=== PATIENT | female | born 1975 | race Caucasian/White ===

== ENCOUNTER 2016-12-05 00:09 | Emergency (ER) | payer OTHER, BC ==
[2016-12-05] MEDS ORDERED: Ketorolac 30 MG/ML SDV IVPUSH ONE (00:30)
[2016-12-05] MEDS ORDERED: diphenhydrAMINE 50 MG/ML SDV IVPUSH ONE (00:30)
[2016-12-05] MEDS ORDERED: Metoclopramide 10 MG/2 ML SDV IV ONE (00:30)
[2016-12-05] MEDS ORDERED: Ondansetron 4 MG/2 ML SDV IVPUSH ONE (00:30)
[2016-12-05] MEDS ORDERED: Sodium Chloride 0.9% 1,000 ML IV ONE (00:30)
--- NOTE | 2016-12-05 00:33 | EDM.PDOC ---
ED HPI GENERAL MEDICAL PROBLEM - General Chief Complaint: Headache Stated Complaint: MIGRAINE Time Seen by Provider: 12/05/16 00:26 - History of Present Illness INITIAL COMMENTS - FREE TEXT/NARRATIVE: HISTORY AND PHYSICAL: History of present illness: Patient is a 41-year-old white female history of migraine headache presents with the chief complaint of migraine headache she states this was aggravated by working on a computer all day. She's had similar episodes in the past times many she is followed by private medical doctor for this problem Review of systems: As per history of present illness and below otherwise all systems reviewed and negative. Past medical history: As per history of present illness and as reviewed below otherwise noncontributory. Surgical history: As per history of present illness and as reviewed below otherwise noncontributory. Social history: No reported history of drug or alcohol abuse. Family history: As per history of present illness and as reviewed below otherwise noncontributory. Physical exam: HEENT: Atraumatic, normocephalic, pupils reactive, negative for conjunctival pallor or scleral icterus, mucous membranes moist, throat clear, neck supple, nontender, trachea midline. Lungs: Clear to auscultation, breath sounds equal bilaterally, chest nontender. Heart: S1S2, regular, negative for clicks, rubs, or JVD. Abdomen: Soft, nondistended, nontender. Negative for masses or hepatosplenomegaly. Negative for costovertebral tenderness. Pelvis: Stable nontender. Genitourinary: Deferred. Rectal: Deferred. Extremities: Atraumatic, negative for cords or calf pain. Neurovascular unremarkable. Neuro: Awake, alert, oriented. Cranial nerves II through XII unremarkable. Cerebellum unremarkable. Motor and sensory unremarkable throughout. Exam nonfocal. Diagnostics: None Therapeutics: Normal saline 1 L bolus Toradol 30 mg IV Reglan 10 mg IV Zofran 4 mg IV Benadryl 50 mg IV Impression: #1 migraine headache Definitive disposition and diagnosis as appropriate pending reevaluation and review of above. headache Pain Score (Numeric/FACES): 8 - Related Data Allergies Allergy/AdvReac Type Severity Reaction Status Date / Time No Known Allergies Allergy Verified 12/05/16 00:12 Home Meds: Home Meds Chloroquine Phosphate 5 gm MC BID 12/05/16 [History] Escitalopram Oxalate [Lexapro] 30 mg PO DAILY 12/05/16 [History] Gabapentin [Gralise] 1,800 mg PO DAILY 12/05/16 [History] traZODone HCl [Trazodone HCl] 100 mg PO 12/05/16 [History] Past Medical History HEENT History: Reports: Sinusitis Cardiovascular History: Reports: None Respiratory History: Reports: None Gastrointestinal History: Reports: Cholelithiasis Genitourinary History: Reports: None 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) Other OB/BYN History: infertility Musculoskeletal History: Reports: Fibromyalgia, Other (see below) Other Musculoskeletal History: myofacial syndrome, Neurological History: Reports: Migraines, Other (see below) Other Neuro History: chronic fatigue Psychiatric History: Reports: Anxiety Endocrine/Metabolic History: Reports: None Immunologic History: Reports: Other (see below) Other Immunologic History: 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 Oncologic (Cancer) History: Reports: None Dermatologic History: Reports: None - Infectious Disease History Infectious Disease History: Reports: Chicken pox - Past Surgical History GI Surgical History: Reports: Cholecystectomy, Other (see below) Other GI Surgeries/Procedures: colon resection Neurological Surgical History: Reports: Other (see below) Other Neurological Surgeries/Procedures: left ulnar nerve entrapment Social & Family History - Family History Family Medical History: Noncontributory - Tobacco Use Smoking Status *Q: Current Every Day Smoker Years of Tobacco use: 29 Packs/Tins Daily: 1 Used Tobacco, but Quit: Yes Second Hand Smoke Exposure: Yes - Alcohol Use Days Per Week of Alcohol Use: 0 Number of Drinks Per Day: 3 Total Drinks Per Week: 0 - Recreational Drug Use Recreational Drug Use: No Drug Use in Last 12 Months: No ED ROS GENERAL - Review of Systems Review Of Systems: ROS reveals no pertinent complaints other than HPI. ED EXAM, GENERAL - Physical Exam Exam: See Below (See dictation) Course - Vital Signs Last Recorded V/S: Last Vital Signs Temp 36.5 C 12/05/16 00:17 Pulse 101 H 12/05/16 00:17 Resp 18 12/05/16 00:17 BP 154/95 H 12/05/16 00:17 Pulse Ox 95 12/05/16 00:17 - Orders/Labs/Meds Orders: Active Orders 24 hr Category Date Time Status Ketorolac [Toradol] Med 12/05/16 00:30 Once 30 mg IVPUSH ONETIME ONE Metoclopramide [Reglan] Med 12/05/16 00:30 Once 10 mg IV ONETIME ONE Ondansetron [Zofran] Med 12/05/16 00:30 Once 4 mg IVPUSH ONETIME ONE Sodium Chloride 0.9% [Normal Saline] 1,000 ml Med 12/05/16 00:30 Ordered IV STAT diphenhydrAMINE [Benadryl] Med 12/05/16 00:30 Once 50 mg IVPUSH ONETIME ONE Departure - Departure Time of Disposition: 00:32 Disposition: Home, Self-Care 01 Condition: good Clinical Impression: Migraine headache Forms: ED Department Discharge Additional Instructions: The following information is given to patients seen in the emergency department who are being discharged to home. This information is to outline your options for follow-up care. We provide all patients seen in our emergency department with a follow-up referral. The need for follow-up, as well as the timing and circumstances, are variable depending upon the specifics of your emergency department visit. If you don't have a primary care physician on staff, we will provide you with a referral. We always advise you to contact your personal physician following an emergency department visit to inform them of the circumstance of the visit and for follow-up with them and/or the need for any referrals to a consulting specialist. The emergency department will also refer you to a specialist when appropriate. This referral assures that you have the opportunity for followup care with a specialist. All of these measure are taken in an effort to provide you with optimal care, which includes your followup. Under all circumstances we always encourage you to contact your private physician who remains a resource for coordinating your care. When calling for followup care, please make the office aware that this follow-up is from your recent emergency room visit. If for any reason you are refused follow-up, please contact the [facility] emergency department at and asked to speak to the emergency department charge nurse. Continue current medications follow up primary medical doctor one to 2 days return as needed as discussed - My Orders Last 24 Hours: My Active Orders 12/05/16 00:30 Ketorolac [Toradol] 30 mg IVPUSH ONETIME ONE Metoclopramide [Reglan] 10 mg IV ONETIME ONE Ondansetron [Zofran] 4 mg IVPUSH ONETIME ONE Sodium Chloride 0.9% [Normal Saline] 1,000 ml IV STAT diphenhydrAMINE [Benadryl] 50 mg IVPUSH ONETIME ONE - Assessment/Plan Last 24 Hours: My Active Orders 12/05/ 00:30 Ketorolac [Toradol] 30 mg IVPUSH ONETIME ONE Metoclopramide [Reglan] 10 mg IV ONETIME ONE Ondansetron [Zofran] 4 mg IVPUSH ONETIME ONE Sodium Chloride 0.9% [Normal Saline] 1,000 ml IV STAT diphenhydrAMINE [Benadryl] 50 mg IVPUSH ONETIME ONE
[2016-12-05 02:04] VITALS: BP 114/77
== END 2016-12-05 01:57 | disposition home or self-care (01) ==
LOC: MW.ED 00:09
DX: G43.909 Migraine, unspecified, not intractable, without status migrainosus (principal); F41.9 Anxiety disorder, unspecified; Z90.49 Acquired absence of other specified parts of digestive tract; Z98.890 Other specified postprocedural states; F17.210 Nicotine dependence, cigarettes, uncomplicated; Z79.899 Other long term (current) drug therapy
CPT/HCPCS: 96374; 96375; 99283; J1200; J1885; J2405; J2765; J7040; 99284

== ENCOUNTER 2017-05-08 22:22 | Emergency (ER) | payer OTHER, BC ==
[2017-05-08] MEDS ORDERED: Ondansetron 4 MG/2 ML SDV IVPUSH ONE (22:42)
[2017-05-08] MEDS ORDERED: Sodium Chloride 0.9% 1,000 ML IV ONE (22:42)
[2017-05-08] MEDS ORDERED: Ketorolac 30 MG/ML SDV IVPUSH ONE (22:42)
--- NOTE | 2017-05-08 23:19 | EDM.PDOC ---
ED HPI GENERAL MEDICAL PROBLEM - General Chief Complaint: Headache Stated Complaint: MIGRAINE Time Seen by Provider: 05/08/17 23:18 Source of Information: Reports: Patient - History of Present Illness INITIAL COMMENTS - FREE TEXT/NARRATIVE: HISTORY AND PHYSICAL: History of present illness: []Patient presents with usual migraine symptoms she rates 8 out of 10 on arrival right unilateral with photophobia nausea and one episode of vomiting per patient is a consistent with her usual migraine symptoms she generally takes amitriptyline which will take care of these symptoms however tonight she is not gaining any relief. No fever chills sweats no chest pain shortness breath dizziness or palpitation no bowel or urine symptoms Review of systems: As per history of present illness and below otherwise all systems reviewed and negative. Past medical history: As per history of present illness and as reviewed below otherwise noncontributory. Surgical history: As per history of present illness and as reviewed below otherwise noncontributory. Social history: No reported history of drug or alcohol abuse. Family history: As per history of present illness and as reviewed below otherwise noncontributory. Physical exam: HEENT: Atraumatic, normocephalic, pupils reactive, negative for conjunctival pallor or scleral icterus, mucous membranes moist, throat clear, neck supple, nontender, trachea midline. Lungs: Clear to auscultation, breath sounds equal bilaterally, chest nontender. Heart: S1S2, regular, negative for clicks, rubs, or JVD. Abdomen: Soft, nondistended, nontender. Negative for masses or hepatosplenomegaly. Negative for costovertebral tenderness. Pelvis: Stable nontender. Genitourinary: Deferred. Rectal: Deferred. Extremities: Atraumatic, negative for cords or calf pain. Neurovascular unremarkable. Neuro: Awake, alert, oriented. Cranial nerves II through XII unremarkable. Cerebellum unremarkable. Motor and sensory unremarkable throughout. Exam nonfocal. Diagnostics: []None Therapeutics: []Toradol 30 milligrams IV Zofran 8 mg IV Normal saline bolus 1 L Ativan 1 mg IV Benadryl 25 mg IV Follow-up with primary care in 2 weeks sooner as needed Impression: []Migraine Definitive disposition and diagnosis as appropriate pending reevaluation and review of above. head Pain Score (Numeric/FACES): 10 - Related Data Allergies Allergy/AdvReac Type Severity Reaction Status Date / Time No Known Allergies Allergy Verified 05/08/17 22:53 Home Meds: Home Meds Chloroquine Phosphate 5 gm MC BID 12/05/16 [History] Escitalopram Oxalate [Lexapro] 30 mg PO DAILY 12/05/16 [History] Gabapentin [Gralise] 1,800 mg PO DAILY 12/05/16 [History] Nortriptyline 50 mg PO BEDTIME 12/05/16 [History] traZODone HCl [Trazodone HCl] 100 mg PO ASDIRECTED 12/05/16 [History] Past Medical History HEENT History: Reports: Sinusitis Cardiovascular History: Reports: None Respiratory History: Reports: None Gastrointestinal History: Reports: Cholelithiasis Genitourinary History: Reports: None [employer]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 (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) Other OB/BYN History: infertility Musculoskeletal History: Reports: Fibromyalgia, Other (See Below) Other Musculoskeletal History: myofacial syndrome, Neurological History: Reports: Migraines, Other (See Below) Other Neuro History: chronic fatigue Psychiatric History: Reports: Anxiety Endocrine/Metabolic History: Reports: None Immunologic History: Reports: Other (See Below) Other Immunologic History: 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 Oncologic (Cancer) History: Reports: None Dermatologic History: Reports: None - Infectious Disease History Infectious Disease History: Reports: Chicken Pox - Past Surgical History GI Surgical History: Reports: Cholecystectomy, Other (See Below) Neurological Surgical History: Reports: Other (See Below) Social & Family History - Family History Family Medical History: Noncontributory - Tobacco Use Smoking Status *Q: Current Every Day Smoker Years of Tobacco use: 20 Packs/Tins Daily: 1 Used Tobacco, but Quit: Yes Second Hand Smoke Exposure: Yes - Alcohol Use Days Per Week of Alcohol Use: 0 Number of Drinks Per Day: 3 Total Drinks Per Week: 0 - Recreational Drug Use Recreational Drug Use: No Drug Use in Last 12 Months: No ED ROS GENERAL - Review of Systems Review Of Systems: ROS reveals no pertinent complaints other than HPI. ED EXAM, GENERAL - Physical Exam Exam: See Below Course - Vital Signs Last Recorded V/S: Last Vital Signs Temp 36.3 C 05/08/17 22:55 Pulse 88 05/08/17 22:55 Resp 18 05/08/17 22:55 BP 182/101 H 05/08/17 22:55 Pulse Ox 97 05/08/17 22:55 - Orders/Labs/Meds Orders: Active Orders 24 hr Category Date Time Status LORazepam [Ativan] Med 05/09/17 00:24 Once 1 mg IVPUSH ONETIME ONE diphenhydrAMINE [Benadryl] Med 05/09/17 00:24 Once 25 mg IVPUSH ONETIME ONE Meds: Medications Discontinued Medications Generic Name Dose Route Start Last Admin Trade Name Aileen PRN Reason Stop Dose Admin Sodium Chloride 1,000 mls @ 999 mls/hr 05/08/17 22:42 05/08/17 23:13 Normal Saline IV 05/08/17 23:42 999 mls/hr STAT ONE Administration Ketorolac Tromethamine 30 mg 05/08/17 22:42 05/08/17 23:14 Toradol IVPUSH 05/08/17 22:43 30 mg ONETIME ONE Administration Ondansetron HCl 8 mg 05/08/17 22:42 05/08/17 23:15 Zofran IVPUSH 05/08/17 22:43 8 mg ONETIME ONE Administration Departure - Departure Time of Disposition: 00:25 Disposition: Home, Self-Care 01 Condition: Good Clinical Impression: Migraine - Discharge Information Referrals: Atilio Ahumada MD [Primary Care Provider] - Forms: ED Department Discharge Additional Instructions: Continue home medications as directed Return if symptoms persist or worsen Follow-up with primary care in 2 weeks The following information is given to patients seen in the emergency department who are being discharged to home. This information is to outline your options for follow-up care. We provide all patients seen in our emergency department with a follow-up referral. The need for follow-up, as well as the timing and circumstances, are variable depending upon the specifics of your emergency department visit. If you don't have a primary care physician on staff, we will provide you with a referral. We always advise you to contact your personal physician following an emergency department visit to inform them of the circumstance of the visit and for follow-up with them and/or the need for any referrals to a consulting specialist. The emergency department will also refer you to a specialist when appropriate. This referral assures that you have the opportunity for follow-up care with a specialist. All of these measure are taken in an effort to provide you with optimal care, which includes your follow-up. Under all circumstances we always encourage you to contact your private physician who remains a resource for coordinating your care. When calling for follow-up care, please make the office aware that this follow-up is from your recent emergency room visit. If for any reason you are refused follow-up, please contact the [facility] emergency department at and asked to speak to the emergency department charge nurse. - My Orders Last 24 Hours: My Active Orders 05/09/17 00:24 LORazepam [Ativan] 1 mg IVPUSH ONETIME ONE diphenhydrAMINE [Benadryl] 25 mg IVPUSH ONETIME ONE - Assessment/Plan Last 24 Hours: My Active Orders 05/09/17 00:24 LORazepam [Ativan] 1 mg IVPUSH ONETIME ONE diphenhydrAMINE [Benadryl] 25 mg IVPUSH ONETIME ONE
[2017-05-09] MEDS ORDERED: LORazepam 2 MG/ML MDV IVPUSH ONE (00:24)
[2017-05-09] MEDS ORDERED: diphenhydrAMINE 50 MG/ML SDV IVPUSH ONE (00:24)
[2017-05-09 04:16] VITALS: BP 134/77
== END 2017-05-09 00:57 | disposition home or self-care (01) ==
LOC: MW.ED 22:22
DX: G43.909 Migraine, unspecified, not intractable, without status migrainosus (principal); F17.210 Nicotine dependence, cigarettes, uncomplicated; Z79.899 Other long term (current) drug therapy; Z90.49 Acquired absence of other specified parts of digestive tract; Z88.8 Allergy status to other drugs, medicaments and biological substances; Z88.1 Allergy status to other antibiotic agents
CPT/HCPCS: 96361; 96374; 96375; 99283; J1200; J1885; J2060; J2405; J7040

== ENCOUNTER 2017-10-01 22:19 | Emergency (ER) | payer BC ==
[2017-10-01] MEDS ORDERED: Sodium Chloride 0.9% 1,000 ML IV ONE (22:54)
[2017-10-01] MEDS ORDERED: Ondansetron 4 MG/2 ML SDV IVPUSH ONE (22:54)
[2017-10-01] MEDS ORDERED: Ketorolac 30 MG/ML SDV IVPUSH ONE (22:54)
[2017-10-01] MEDS ORDERED: SUMAtriptan 6 MG/0.5 ML SDV SUBCUT ONE (22:55)
--- NOTE | 2017-10-01 22:56 | EDM.PDOC ---
ED HPI GENERAL MEDICAL PROBLEM - General Chief Complaint: Headache Stated Complaint: JAW PAIN Time Seen by Provider: 10/01/17 22:55 Source of Information: Reports: Patient - History of Present Illness INITIAL COMMENTS - FREE TEXT/NARRATIVE: HISTORY AND PHYSICAL: History of present illness: [Patient presents with migraine she has history of migraine right unilateral pain with or yesterday, headache continues 8 out of 10 on arrival O fever nausea vomiting chills sweats no chest pain shortness of breath dizziness or palpitation no bowel or urine symptoms no visual change or scotoma current ] Review of systems: As per history of present illness and below otherwise all systems reviewed and negative. Past medical history: As per history of present illness and as reviewed below otherwise noncontributory. Surgical history: As per history of present illness and as reviewed below otherwise noncontributory. Social history: No reported history of drug or alcohol abuse. Family history: As per history of present illness and as reviewed below otherwise noncontributory. Physical exam: HEENT: Atraumatic, normocephalic, pupils reactive, negative for conjunctival pallor or scleral icterus, mucous membranes moist, throat clear, neck supple, nontender, trachea midline. Lungs: Clear to auscultation, breath sounds equal bilaterally, chest nontender. Heart: S1S2, regular, negative for clicks, rubs, or JVD. Abdomen: Soft, nondistended, nontender. Negative for masses or hepatosplenomegaly. Negative for costovertebral tenderness. Pelvis: Stable nontender. Genitourinary: Deferred. Rectal: Deferred. Extremities: Atraumatic, negative for cords or calf pain. Neurovascular unremarkable. Neuro: Awake, alert, oriented. Cranial nerves II through XII unremarkable. Cerebellum unremarkable. Motor and sensory unremarkable throughout. Exam nonfocal. Diagnostics: [Clinical ] Therapeutics: [1 L normal saline bolus 8 mg Zofran IV Toradol 30 mg IV Imitrex 6 mg subcutaneous] Impression: [Migraine-improved/resolved with above Chronic history of baseline] Definitive disposition and diagnosis as appropriate pending reevaluation and review of above. 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 ED EXAM, GENERAL - Physical Exam Exam: See Below Course - Vital Signs Last Recorded V/S: Last Vital Signs Temp 97.6 F 10/01/17 22:35 Pulse 97 10/01/17 22:35 Resp 18 10/01/17 22:35 BP 131/85 10/01/17 22:35 Pulse Ox 95 10/01/17 22:35 - Orders/Labs/Meds Meds: Medications Discontinued Medications Generic Name Dose Route Start Last Admin Trade Name Freq PRN Reason Stop Dose Admin Sodium Chloride 1,000 mls @ 999 mls/hr 10/01/17 22:54 10/01/17 23:32 Normal Saline IV 10/01/17 23:54 999 mls/hr STAT ONE Administration Ketorolac Tromethamine 30 mg 10/01/17 22:54 10/01/17 23:39 Toradol IVPUSH 10/01/17 22:55 30 mg ONETIME ONE Administration Ondansetron HCl 8 mg 10/01/17 22:54 10/01/17 23:36 Zofran IVPUSH 10/01/17 22:55 8 mg ONETIME ONE Administration Sumatriptan Succinate 6 mg 10/01/17 22:55 10/01/17 23:41 Imitrex SUBCUT 10/01/17 22:56 6 mg ONETIME ONE Administration Departure - Departure Time of Disposition: 00:01 Disposition: Home, Self-Care 01 Condition: Good Clinical Impression: Migraine - Discharge Information Referrals: Atilio Ahumada MD [Primary Care Provider] - Forms: ED Department Discharge Additional Instructions: The following information is given to patients seen in the emergency department who are being discharged to home. This information is to outline your options for follow-up care. We provide all patients seen in our emergency department with a follow-up referral. The need for follow-up, as well as the timing and circumstances, are variable depending upon the specifics of your emergency department visit. If you don't have a primary care physician on staff, we will provide you with a referral. We always advise you to contact your personal physician following an emergency department visit to inform them of the circumstance of the visit and for follow-up with them and/or the need for any referrals to a consulting specialist. The emergency department will also refer you to a specialist when appropriate. This referral assures that you have the opportunity for follow-up care with a specialist. All of these measure are taken in an effort to provide you with optimal care, which includes your follow-up. Under all circumstances we always encourage you to contact your private physician who remains a resource for coordinating your care. When calling for follow-up care, please make the office aware that this follow-up is from your recent emergency room visit. If for any reason you are refused follow-up, please contact the [facility] emergency department at and asked to speak to the emergency department charge nurse.
[2017-10-02 00:37] VITALS: BP 114/73
== END 2017-10-02 00:37 | disposition home or self-care (01) ==
LOC: MERGE 22:19 → MW.ED 22:19
DX: G43.909 Migraine, unspecified, not intractable, without status migrainosus (principal); F17.210 Nicotine dependence, cigarettes, uncomplicated; Z79.899 Other long term (current) drug therapy
CPT/HCPCS: 96361; 96372; 96374; 96375; 99283; J1885; J2405; J3030; J7040

== ENCOUNTER 2017-12-11 15:20 | Emergency (ER) | payer BC ==
--- NOTE | 2017-12-11 16:11 | EDM.PDOC ---
ED HPI GENERAL MEDICAL PROBLEM - General Chief Complaint: Back Pain or Injury Stated Complaint: UPPER ABD/BACK PAIN Time Seen by Provider: 12/11/17 15:26 Source of Information: Reports: Patient History Limitations: Reports: No Limitations - History of Present Illness INITIAL COMMENTS - FREE TEXT/NARRATIVE: History of present illness: []Patient has had mid back pain for 3 days. She had to change a tire pain began after that although she did not feel any sudden pain while she was doing this. She denies any shortness of breath, recent illnesses, new trauma, fevers, chills or cough. Patient went to [facility]. My not had x-rays and a workup that was negative, she saw her doctor yesterday Dr. Ahumada but was only seen for her chronic knee pain. Review of systems: As per history of present illness and below otherwise all systems reviewed and negative. Past medical history: As per history of present illness and as reviewed below otherwise noncontributory. Surgical history: As per history of present illness and as reviewed below otherwise noncontributory. Social history: No reported history of drug or alcohol abuse. Family history: As per history of present illness and as reviewed below otherwise noncontributory. Physical exam: General: Well developed, well nourished in NAD HEENT: Atraumatic, normocephalic, pupils reactive, negative for conjunctival pallor or scleral icterus, mucous membranes moist, throat clear, neck supple, nontender, trachea midline. Lungs: Clear to auscultation, breath sounds equal bilaterally, chest nontender. Heart: S1S2, regular, negative for clicks, rubs, or JVD. Abdomen: Soft, nondistended, nontender. Negative for masses or hepatosplenomegaly. Negative for costovertebral tenderness. Pelvis: Stable nontender. Genitourinary: Deferred. Rectal: Deferred. Extremities: Atraumatic, negative for cords or calf pain. Neurovascular unremarkable. Neuro: Awake, alert, oriented. Cranial nerves II through XII unremarkable. Cerebellum unremarkable. Motor and sensory unremarkable throughout. Exam nonfocal. Diagnostics: [] Therapeutics: []Toradol IM given with improvement Impression: []Thoracic myofascial strain Plan: []Ibuprofen heat ice follow-up with primary care consider physical therapy. Definitive disposition and diagnosis as appropriate pending reevaluation and review of above. 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 Cardiovascular History: Reports: None Respiratory History: Reports: None Gastrointestinal History: Reports: Cholelithiasis Genitourinary History: Reports: None 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 (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) Other OB/BYN History: infertility Musculoskeletal History: Reports: Fibromyalgia, Other (See Below) Other Musculoskeletal History: myofacial syndrome, Neurological History: Reports: Migraines, Other (See Below) Other Neuro History: Headaches Psychiatric History: Reports: Anxiety Endocrine/Metabolic History: Reports: None Immunologic History: Reports: Other (See Below) Other Immunologic History: 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 Oncologic (Cancer) History: Reports: None Dermatologic History: Reports: None - Infectious Disease History Infectious Disease History: Reports: Chicken Pox - Past Surgical History GI Surgical History: Reports: Cholecystectomy, Other (See Below) Social & Family History - Family History Family Medical History: Noncontributory - Tobacco Use Smoking Status *Q: Current Every Day Smoker Years of Tobacco use: 15 Packs/Tins Daily: 1 Used Tobacco, but Quit: Yes Second Hand Smoke Exposure: Yes - Caffeine Use Caffeine Use: Reports: Soda - Alcohol Use Days Per Week of Alcohol Use: 0 Number of Drinks Per Day: 3 Total Drinks Per Week: 0 - Recreational Drug Use Recreational Drug Use: No Drug Use in Last 12 Months: No ED ROS GENERAL - Review of Systems Review Of Systems: See Below (See history of present illness) ED EXAM, GI/ABD - Physical Exam Exam: See Below (See history of present illness) Course - Vital Signs Last Recorded V/S: Last Vital Signs Temp 98 F 12/11/17 15:51 Pulse 90 12/11/17 15:51 Resp 18 12/11/17 15:51 BP 132/83 12/11/17 15:51 Pulse Ox 96 12/11/17 15:51 - Orders/Labs/Meds Meds: Medications Discontinued Medications Generic Name Dose Route Start Last Admin Trade Name Aileen PRN Reason Stop Dose Admin Ketorolac Tromethamine 60 mg 12/11/17 16:28 12/11/17 16:41 Toradol IM 12/11/17 16:29 60 mg ONETIME ONE Administration Departure - Departure Time of Disposition: 17:26 Disposition: Home, Self-Care 01 Condition: Good Clinical Impression: Mid back pain - Discharge Information Referrals: Atilio Ahumada MD [Primary Care Provider] - Forms: ED Department Discharge Additional Instructions: The following information is given to patients seen in the emergency department who are being discharged to home. This information is to outline your options for follow-up care. We provide all patients seen in our emergency department with a follow-up referral. The need for follow-up, as well as the timing and circumstances, are variable depending upon the specifics of your emergency department visit. If you don't have a primary care physician on staff, we will provide you with a referral. We always advise you to contact your personal physician following an emergency department visit to inform them of the circumstance of the visit and for follow-up with them and/or the need for any referrals to a consulting specialist. The emergency department will also refer you to a specialist when appropriate. This referral assures that you have the opportunity for follow-up care with a specialist. All of these measure are taken in an effort to provide you with optimal care, which includes your follow-up. Under all circumstances we always encourage you to contact your private physician who remains a resource for coordinating your care. When calling for follow-up care, please make the office aware that this follow-up is from your recent emergency room visit. If for any reason you are refused follow-up, please contact the [facility] Emergency Department at and asked to speak to the emergency department charge nurse. Motrin ice and heat for pain follow-up primary care consider physical therapy return if symptoms worsen or change. [facility] [address] [place] [id number]
[2017-12-11] MEDS ORDERED: Ketorolac 60 MG/2 ML SDV IM ONE (16:28)
[2017-12-11 17:55] VITALS: BP 130/85
== END 2017-12-11 17:44 | disposition home or self-care (01) ==
LOC: MW.ED 15:20
DX: S29.012A Strain of muscle and tendon of back wall of thorax, initial encounter (principal); F17.210 Nicotine dependence, cigarettes, uncomplicated; Z79.899 Other long term (current) drug therapy; X58.XXXA Exposure to other specified factors, initial encounter
CPT/HCPCS: 96372; 99283; J1885

== ENCOUNTER 2018-01-24 19:09 | Emergency (ER) | payer BC ==
[2018-01-24] MEDS ORDERED: Ketorolac 60 MG/2 ML SDV IM ONE (19:59)
--- NOTE | 2018-01-24 20:01 | EDM.PDOC ---
ED HPI GENERAL MEDICAL PROBLEM - General Chief Complaint: Back Pain or Injury Stated Complaint: PT HAS BACK PAINS Time Seen by Provider: 01/24/18 19:59 Source of Information: Reports: Patient, Old Records History Limitations: Reports: No Limitations - History of Present Illness INITIAL COMMENTS - FREE TEXT/NARRATIVE: HISTORY AND PHYSICAL: []42-year-old female presenting with left flank and left leg pain History of Present Illness: []Last night patient started having pain to the lower back flank area and now radiating down Botox and outer thigh Denies having any difficulty with having bowel movements or passing water History taken her medications for her chronic pain and to help Review of Systems: As per history of present illness and below otherwise all systems reviewed and negative. Past medical history: As per history of present illness and as reviewed below otherwise noncontributory. Surgical history: As per history of present illness and as reviewed below otherwise noncontributory. Social history: No reported history of drug or alcohol abuse. Family history: As per history of present illness and as reviewed below otherwise noncontributory. Physical exam: Alert female answering questions appropriately in full sentences without any shortness of breath HEENT: Atraumatic, normocehpalic, pupils reactive, negative for conjunctival pallor or scleral icterus, mucous membranes moist, throat clear, neck supple, nontender, trachea midline. Lungs: Clear to auscultation, breath sounds equal bilaterally, chest non tender. Heart: S1S2, regular, negative for clicks, rubs, or JVD. Abdomen: Soft, nondistended, nontender. Negative for masses or hepatossplenmegaly. Negative for costovertebral tenderness. Mild tenderness noted with palpation to the left sciatic area with palpation causes pain down her buttocks and into the thigh. Pelvis: Stable nontender. Genitourinary: Deferred. Rectal: Deferred Extremities: Atraumatic, negative for cords or calf pain. Neurovascular unremarkable. Neuro: Awake, alert, oriented. Cranial nerves II through XII unremarkable. Cerebellum unremarkable. Motor and sensory unremarkable throughout. Exam nonfocal. Diagnostics: [] Therapeutics: []Toradol 60 IM Impression: []Left sciatic pain Plan: []Discharge home Take a Valium when you get home Definitive disposition and diagnosis as appropriate pending reevaluation and review of above. Onset: Sudden Duration: Day(s): (1) LEFT FLANK Pain Score (Numeric/FACES): 8 - Related Data Allergies Allergy/AdvReac Type Severity Reaction Status Date / Time No Known Allergies Allergy Verified 01/24/18 19:15 Home Meds: Home Meds Escitalopram [Lexapro] 20 mg PO DAILY 10/01/17 [History] Gabapentin [Neurontin] 600 mg PO TID 10/01/17 [History] Hydrocodone/Acetaminophen [Hydrocodon-Acetaminophn 10-325] 1 tab PO Q4H PRN [History] traZODone 100 mg PO BEDTIME PRN 10/01/17 [History] Diazepam [Valium] 1 tab PO DAILY 01/24/18 [History] Past Medical History HEENT History: Reports: Other (See Below), Sinusitis Other HEENT History: 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 Cardiovascular History: Reports: None Respiratory History: Reports: None Gastrointestinal History: Reports: Cholelithiasis Genitourinary History: Reports: None 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 (See Below) Other OB/BYN History: infertility Musculoskeletal History: Reports: Fibromyalgia, Other (See Below) Other Musculoskeletal History: myofacial syndrome, Neurological History: Reports: Migraines, Other (See Below) Other Neuro History: Headaches Psychiatric History: Reports: Anxiety Endocrine/Metabolic History: Reports: Obesity/BMI 30+ Immunologic History: Reports: Other (See Below) Other Immunologic History: 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 Oncologic (Cancer) History: Reports: None Dermatologic History: Reports: None - Infectious Disease History Infectious Disease History: Reports: Chicken Pox - Past Surgical History GI Surgical History: Reports: Cholecystectomy, Other (See Below) Social & Family History - Family History Family Medical History: Noncontributory - Tobacco Use Smoking Status *Q: Current Every Day Smoker Years of Tobacco use: 20 Packs/Tins Daily: 1 - Caffeine Use Caffeine Use: Reports: Soda - Recreational Drug Use Recreational Drug Use: No ED ROS GENERAL - Review of Systems Review Of Systems: ROS reveals no pertinent complaints other than HPI. ED EXAM,LOWER BACK PAIN/INJURY - Physical Exam Exam: See Below (See dictation) Course - Vital Signs Last Recorded V/S: Last Vital Signs Temp 36.3 C 01/24/18 19:09 Pulse 101 H 01/24/18 19:09 Resp 18 01/24/18 19:09 BP 124/68 01/24/18 19:09 Pulse Ox - Orders/Labs/Meds Meds: Medications Discontinued Medications Generic Name Dose Route Start Last Admin Trade Name Aileen PRN Reason Stop Dose Admin Ketorolac Tromethamine 60 mg 01/24/18 19:59 01/24/18 20:06 Toradol IM 01/24/18 20:00 60 mg ONETIME ONE Administration Departure - Departure Time of Disposition: 20:52 Disposition: Home, Self-Care 01 Condition: Good Clinical Impression: Sciatica Qualifiers: Laterality: right Qualified Code(s): M54.31 - Sciatica, right side - Discharge Information Referrals: PCP,None [Primary Care Provider] - Forms: ED Department Discharge Additional Instructions: The following information is given to patients seen in the emergency department who are being discharged to home. This information is to outline your options for follow-up care. We provide all patients seen in our emergency department with a follow-up referral. The need for follow-up, as well as the timing and circumstances, are variable depending upon the specifics of your emergency department visit. If you don't have a primary care physician on staff, we will provide you with a referral. We always advise you to contact your personal physician following an emergency department visit to inform them of the circumstance of the visit and for follow-up with them and/or the need for any referrals to a consulting specialist. The emergency department will also refer you to a specialist when appropriate. This referral assures that you have the opportunity for followup care with a specialist. All of these measure are taken in an effort to provide you with optimal care, which includes your followup. Under all circumstances we always encourage you to contact your private physician who remains a resource for coordinating your care. When calling for followup care, please make the office aware that this follow-up is from your recent emergency room visit. If for any reason you are refused follow-up, please contact the [facility] emergency department at and asked to speak to the emergency department charge nurse. Follow-up with your primary care provider Take your diazepam when you get home
[2018-01-24 20:36] VITALS: BP 124/68
== END 2018-01-24 21:35 | disposition home or self-care (01) ==
LOC: MW.ED 19:09
DX: M54.31 Sciatica, right side (principal); F17.210 Nicotine dependence, cigarettes, uncomplicated; F41.9 Anxiety disorder, unspecified; Z79.899 Other long term (current) drug therapy
CPT/HCPCS: 96372; 99283; J1885; 99282

== ENCOUNTER 2018-05-22 10:29 | Emergency (ER) | payer BC ==
--- NOTE | 2018-05-22 11:12 | EDM.PDOC ---
ED HPI GENERAL MEDICAL PROBLEM - General Chief Complaint: Abdominal Pain Stated Complaint: ABD PAIN Time Seen by Provider: 05/22/18 10:32 Source of Information: Reports: Patient History Limitations: Reports: No Limitations - History of Present Illness INITIAL COMMENTS - FREE TEXT/NARRATIVE: HISTORY AND PHYSICAL: History of present illness: Patient is a 43-year-old female who presents to the emergency room with complaints of generalized abdominal pain. She states she has doctored multiple times with her primary care provider, Dr. Ahumada at [facility]. Testing and imaging which have not given her any answers to the cause of her chronic abdominal pain. She has had multiple surgeries which has created some scars into the abdomen. She reports that Dr. Ahumada believes this may be adhesions in the abdomen which is causing her chronic pain. She does have [place], gabapentin, Zofran and Valium, she has been taking but states they have not alleviated her discomfort. She denies any fever, chills, chest pain or shortness of breath. Denies any dysuria Review of systems: As per history of present illness and below otherwise all systems reviewed and negative. Past medical history: As per history of present illness and as reviewed below otherwise noncontributory. Surgical history: As per history of present illness and as reviewed below otherwise noncontributory. Social history: No reported history of drug or alcohol abuse. Family history: As per history of present illness and as reviewed below otherwise noncontributory. Physical exam: General: Well-developed and well-nourished 43-year-old female. Alert and oriented. Nontoxic appearing and in no acute distress. HEENT: Atraumatic, normocephalic, pupils equal and reactive bilaterally, negative for conjunctival pallor or scleral icterus, mucous membranes moist, throat clear, neck supple, nontender, trachea midline. No drooling or trismus noted. No meningeal signs Lungs: Clear to auscultation, breath sounds equal bilaterally, chest nontender. Heart: S1S2, regular rate and rhythm without overt murmur Abdomen: Soft, nondistended, and otherwise discomfort throughout. Multiple pitting scars to throughout abdomen from previous surgeries. Negative for masses or hepatosplenomegaly. Negative for costovertebral tenderness. Pelvis: Stable nontender. Genitourinary: Deferred. Rectal: Deferred. Skin: Intact, warm, dry. No lesions or rashes noted. Extremities: Atraumatic, negative for cords or calf pain. Neurovascular unremarkable. Neuro: Awake, alert, oriented. Cranial nerves II through XII unremarkable. Cerebellum unremarkable. Motor and sensory unremarkable throughout. Exam nonfocal. Notes: Patient had a double contrast upper GI and small bowel follow-through on 2017: Stable small outpouching within the greater curvature of the stomach possibly diverticulum significant stricture noted within the remaining small bowel or at the anastomosis site. 1115: Dr Overton was paged, he is currently out of town. I did eat with his nurse to verify that the patient does have an appointment with him on 05/26/2018 and an appointment on June 09, 2018 with the guard driver at [facility]. Patient has not had any CTs of the chest, abdomen or pelvis in the last 5 months. Patient reports she did not take any of her pain medications this morning as she had to drop her son off at school. She is aware that due to the Jevity of her symptoms and workup that has been ongoing with her primary care provider, we may not find answers today. She is agreeable to doing routine lab work today and CT of the chest/abdomen and pelvis. She is requesting pain medication as she did not take her morning doses. She does have a ride home. Lab work is unremarkable. CT of the chest/abdomen and pelvis no acute findings within the chest, abdomen or pelvis. There is a tiny 5 mm pleural based nodule in the left lower lobe, stable. Multiple small ovarian cysts this information was shared with the patient. She is tearful stating she would like to get to the bottom of her chronic abdominal pain. As she is already on multiple medications to manage her pain and will not be prescribing anything today. She will follow-up with her primary care provider and the guard driver as directed. Denies any further questions or concerns at this time. Diagnostics: CBC, CMP, UA, Chest CT, Abd/Pelv CT Therapeutics: Zofran, Dilaudid IM Prescription: None Impression: Abdominal Pain, Chronic Plan: 1. Continue with your prescribed medications as directed. 2. Keep your follow-up appointments with Dr. Ahumada and the guard driver at [facility]. 3. Return to the ED as needed and as discussed. Definitive disposition and diagnosis as appropriate pending reevaluation and review of above. Abdomen Pain Score (Numeric/FACES): 10 - Related Data Allergies Allergy/AdvReac Type Severity Reaction Status Date / Time No Known Allergies Allergy Verified 04/15/18 12:13 Home Meds: Home Meds Gabapentin [Neurontin] 600 mg PO TID 10/01/17 [History] Hydrocodone/Acetaminophen [Hydrocodon-Acetaminophn 10-325] 1 tab PO Q4H PRN [History] traZODone 100 mg PO BEDTIME PRN 10/01/17 [History] diazePAM [Valium] 1 tab PO DAILY 01/24/18 [History] Ondansetron HCl [Zofran] 4 mg PO Q4HR #12 tablet 04/15/18 [Rx] Sertraline [Zoloft] 50 mg PO DAILY 04/15/18 [History] Past Medical History HEENT History: Reports: Other (See Below), Sinusitis Other HEENT History: 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 Cardiovascular History: Reports: None Respiratory History: Reports: None Gastrointestinal History: Reports: Cholelithiasis Genitourinary History: Reports: None GYMNASTIC COACH History: Reports: Other (See Below) Other GYMNASTIC COACH History: infertility Musculoskeletal History: Reports: Fibromyalgia, Other (See Below) Other Musculoskeletal History: myofacial syndrome, Neurological History: Reports: Migraines, Other (See Below) Other Neuro History: Headaches Psychiatric History: Reports: Anxiety Endocrine/Metabolic History: Reports: Obesity/BMI 30+ Immunologic History: Reports: Other (See Below) Other Immunologic History: 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 ED EXAM, GI/ABD - Physical Exam Exam: See Below (See dictation) Course - Vital Signs Last Recorded V/S: Last Vital Signs Temp 97.4 F 05/22/18 11:13 Pulse 78 05/22/18 11:13 Resp 18 05/22/18 11:13 BP 127/92 H 05/22/18 11:13 Pulse Ox 96 05/22/18 11:13 - Orders/Labs/Meds Labs: Laboratory Tests 05/22/18 05/22/18 05/22/18 Range/Units 10:53 10:53 10:55 WBC 10.56 (4.0-11.0) K/uL RBC 4.81 (4.30-5.90) M/uL Hgb 12.5 (12.0-16.0) g/dL Hct 37.8 (36.0-46.0) % MCV 78.6 L (80.0-98.0) fL MCH 26.0 L (27.0-32.0) pg MCHC 33.1 (31.0-37.0) g/dL RDW Std Deviation 44.0 (28.0-62.0) fl RDW Coeff of Aida 15 (11.0-15.0) % Plt Count 321 (150-400) K/uL MPV 9.10 (7.40-12.00) fL Neut % (Auto) 64.9 (48.0-80.0) % Lymph % (Auto) 27.7 (16.0-40.0) % [place] % (Auto) 5.3 (0.0-15.0) % Eos % (Auto) 1.9 (0.0-7.0) % Baso % (Auto) 0.2 (0.0-1.5) % Neut # (Auto) 6.9 H (1.4-5.7) K/uL Lymph # (Auto) 2.9 H (0.6-2.4) K/uL [place] # (Auto) 0.6 (0.0-0.8) K/uL Eos # (Auto) 0.2 (0.0-0.7) K/uL Baso # (Auto) 0.0 (0.0-0.1) K/uL Nucleated RBC % 0.0 /100WBC Nucleated RBCs # 0 K/uL Sodium 138 (136-145) mmol/L Potassium 3.8 (3.5-5.1) mmol/L Chloride 104 (98-107) mmol/L Carbon Dioxide 24.5 (21.0-32.0) mmol/L BUN 12 (7.0-18.0) mg/dL Creatinine 0.8 (0.6-1.0) mg/dL Est Cr Clr Drug Dosing TNP Estimated GFR (MDRD) > 60.0 ml/min Glucose 97 (74-106) mg/dL Calcium 8.8 (8.5-10.1) mg/dL Total Bilirubin 0.2 (0.2-1.0) mg/dL AST 16 (15-37) IU/L ALT 26 (14-63) IU/L Alkaline Phosphatase 148 H (46-116) U/L Total Protein 7.6 (6.4-8.2) g/dL Albumin 3.4 (3.4-5.0) g/dL Globulin 4.2 H (2.0-3.5) g/dL Albumin/Globulin Ratio 0.8 L (1.3-2.8) Urine Color YELLOW Urine Appearance CLEAR Urine pH 5.5 (5.0-8.0) Ur Specific [place] 1.025 (1.001-1.035) Urine Protein NEGATIVE (NEGATIVE) mg/dL Urine Glucose (UA) NEGATIVE (NEGATIVE) mg/dL Urine Ketones NEGATIVE (NEGATIVE) mg/dL Urine Occult Blood TRACE-INTACT (NEGATIVE) Urine Nitrite NEGATIVE (NEGATIVE) Urine Bilirubin NEGATIVE (NEGATIVE) Urine Urobilinogen 0.2 (<2.0) EU/dL Ur Leukocyte Esterase NEGATIVE (NEGATIVE) Urine RBC NONE SEEN (0-2/HPF) Urine WBC 0-1 (0-5/HPF) Ur Epithelial Cells MODERATE (NONE-FEW) Amorphous Sediment RARE (NEGATIVE) Urine Bacteria RARE (NEGATIVE) Meds: Medications Discontinued Medications Generic Name Dose Route Start Last Admin Trade Name Aileen PRN Reason Stop Dose Admin Hydromorphone HCl 1 mg 05/22/18 11:15 05/22/18 13:07 Dilaudid IM 05/22/18 11:16 1 mg ONETIME ONE Administration Iopamidol 100 ml 05/22/18 11:44 05/22/18 11:55 Isovue Multipack-370 (76%) IVPUSH 05/22/18 11:45 100 ml ONETIME STA Administration Ondansetron HCl 4 mg 05/22/18 11:15 05/22/18 13:08 Zofran Odt PO 05/22/18 11:16 4 mg ONETIME ONE Administration Departure - Departure Time of Disposition: 13:36 Disposition: Home, Self-Care 01 Clinical Impression: Chronic abdominal pain, Abdominal pain - Discharge Information Instructions: Abdominal Pain, Adult Referrals: PCP,None [Primary Care Provider] - Forms: ED Department Discharge Additional Instructions: The following information is given to patients seen in the emergency department who are being discharged to home. This information is to outline your options for follow-up care. We provide all patients seen in our emergency department with a follow-up referral. The need for follow-up, as well as the timing and circumstances, are variable depending upon the specifics of your emergency department visit. If you don't have a primary care physician on staff, we will provide you with a referral. We always advise you to contact your personal physician following an emergency department visit to inform them of the circumstance of the visit and for follow-up with them and/or the need for any referrals to a consulting specialist. The emergency department will also refer you to a specialist when appropriate. This referral assures that you have the opportunity for follow-up care with a specialist. All of these measure are taken in an effort to provide you with optimal care, which includes your follow-up. Under all circumstances we always encourage you to contact your private physician who remains a resource for coordinating your care. When calling for follow-up care, please make the office aware that this follow-up is from your recent emergency room visit. If for any reason you are refused follow-up, please contact the [facility] Emergency Department at and asked to speak to the emergency department charge nurse. [facility] [address] [place] [id number] 1. Continue with your prescribed medications as directed. 2. Keep your follow-up appointments with Dr. Ahumada and the guard driver at [facility] in [place]. 3. Return to the ED as needed and as discussed.
[2018-05-22] MEDS ORDERED: HYDROmorphone 2 MG/ML SDV IM ONE (11:15)
[2018-05-22] MEDS ORDERED: Ondansetron 4 MG Tab.DIS PO ONE (11:15)
[2018-05-22 11:17] LABS: CHLORIDE,CL 104 mmol/L (98-107); SODIUM,NA 138 mmol/L (136-145)
[2018-05-22] MEDS ORDERED: Iopamidol 755 MG/ML 500 ML Multipack Bottle IVPUSH STA (11:44)
--- NOTE | 2018-05-22 13:35 | CT ---
CT of the chest, abdomen and pelvis with contrast. HISTORY: Shortness of breath TECHNIQUE: Axial CT images were obtained of the chest, abdomen and pelvis following administration of 100 mL of Isovue-370 in the left hand without complication. Coronal and sagittal reconstructions obt ained. Comparison: CT abdomen and pelvis 01/15/2016 FINDINGS: Chest: The lungs are clear without focal consolidation. No pleural effusion or pneumothorax. Mild dep endent atelectasis. There is a small 5 mm pleural-based nodular density in the left lower lobe, image 67. The heart is normal in size without a pericardial effusion. The thoracic aorta is normal in scottie simon. Main pulmonary arteries are patent. The central airways are clear. No mediastinal, hilar lymphad enopathy. Nonpathologically enlarged bilateral axillary lymph nodes noted. Cholecystectomy. Abdomen: There is a small 1.5 cm hyperenhancing nodule noted within the right hepatic lobe, image 20 of series 301. The adrenal glands, pancreas, and spleen appear normal. Cholecystectomy. The kidneys enhance and function symmetrically without evidence of obstructive uropathy. Is: The large and small bowel are normal in caliber without evidence of obstruction. Focal pericoloni c inflammation or stranding. Multiple ovarian cysts are noted measuring up to 3 cm on the right and 3.9 cm on the left. The uterus appears normal. The urinary bladder is unremarkable. No bulky pelvic l ymphadenopathy or free pelvic fluid. No suspicious osseous abnormalities identified. IMPRESSION: 1. No acute findings noted within the chest, abdomen, or pelvis. 2. Tiny 5 mm pleural-based nodule within the left lower lobe. Stable. 3. Multiple small ovarian cysts bilaterally measuring up to 3.9 cm. 4. Small 1.5 cm hyperenhancing left hepatic lobe nodule, likely stable in comparison to previous exam inations.
[2018-05-22 13:57] VITALS: BP 163/93
== END 2018-05-22 13:57 | disposition home or self-care (01) ==
LOC: MW.ED 10:29
DX: R10.84 Generalized abdominal pain (principal); F41.9 Anxiety disorder, unspecified; Z79.899 Other long term (current) drug therapy
CPT/HCPCS: 36415; 71260; 74177; 80053; 81001; 85025; 96372; 99284; A9270; J1170; Q9967; 99283

== ENCOUNTER 2019-03-18 14:57 | Emergency (ER) | payer BC ==
[2019-03-18] MEDS ORDERED: HYDROmorphone 2 MG/ML SDV IM ONE (15:18)
[2019-03-18] MEDS ORDERED: Ondansetron 4 MG Tab.DIS PO ONE (15:18)
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
[2019-03-18] MEDS ORDERED: HYDROmorphone 1 MG/ML Syringe IM ONE (15:33)
[2019-03-18 16:08] VITALS: BP 147/100
== END 2019-03-18 16:08 | disposition home or self-care (01) ==
LOC: MW.ED 14:57
DX: G43.709 Chronic migraine without aura, not intractable, without status migrainosus (principal); F41.9 Anxiety disorder, unspecified; F32.9 Major depressive disorder, single episode, unspecified; E66.9 Obesity, unspecified; Z68.41 Body mass index [BMI] 40.0-44.9, adult; F17.210 Nicotine dependence, cigarettes, uncomplicated; Z79.899 Other long term (current) drug therapy
CPT/HCPCS: 96372; 99283; A9270; J1170

== ENCOUNTER 2019-05-07 15:50 | Emergency (ER) | payer BC ==
[2019-05-07] MEDS ORDERED: Ketorolac 60 MG/2 ML SDV IM ONE (16:50)
--- NOTE | 2019-05-07 17:13 | EDM.PDOC ---
ED HPI GENERAL MEDICAL PROBLEM - General Chief Complaint: Back Pain or Injury Stated Complaint: BACK PAIN Time Seen by Provider: 05/07/19 16:30 Source of Information: Reports: Patient History Limitations: Reports: No Limitations - History of Present Illness INITIAL COMMENTS - FREE TEXT/NARRATIVE: HISTORY AND PHYSICAL: History of present illness: Patient is a 44-year-old female who presents to the emergency room with complaints of pain to the left posterior neck that radiates down her left posterior shoulder and scapula. She states that it feels like a muscular strain and does have "spasms" with it. She does already take hydrocodone and has muscle relaxers available to her which she has been taking routinely. She states that this has not been helping with the muscle spasms or pain. She denies any injury, trauma or falls. She denies any numbness, tingling or paresthesia of the upper extremities. Denies any headache or visual changes. Patient denies any fever, chills, neck stiffness, syncope or near syncope. Denies any chest pain, back pain, shortness of breath or cough. Denies any abdominal pain, nausea, vomiting, diarrhea, constipation or dysuria. Patient has been eating and drinking appropriately. Review of systems: As per history of present illness and below otherwise all systems reviewed and negative. Past medical history: As per history of present illness and as reviewed below otherwise noncontributory. Surgical history: As per history of present illness and as reviewed below otherwise noncontributory. Social history: See social history for further information Family history: As per history of present illness and as reviewed below otherwise noncontributory. Physical exam: General: Well-developed and well-nourished 44-year-old female. Alert and oriented. Nontoxic appearing and in no acute distress. HEENT: Atraumatic, normocephalic, pupils equal and reactive bilaterally, negative for conjunctival pallor or scleral icterus, mucous membranes moist, trachea midline. No drooling or trismus noted. No meningeal signs. No hot potato voice noted. Lungs: Clear to auscultation, breath sounds equal bilaterally, chest nontender. Heart: S1S2, regular rate and rhythm without overt murmur Abdomen: Soft, nondistended, nontender. Negative for masses or hepatosplenomegaly. Negative for costovertebral tenderness. Pelvis: Stable nontender. Genitourinary: Deferred. Rectal: Deferred. Skin: Intact, warm, dry. No lesions or rashes noted. C-spine/Back: No pinpoint vertebral tenderness upon palpation. No crepitus, step -offs or obvious deformities. Patient is ambulatory into the emergency room without difficulty or deficit. Able to rock back on heels and walk on toes. Denies any urinary or fecal incontinence. Denies any numbness, tingling or saddle paresthesia. Extremities: Atraumatic, moves all extremities per self without difficulty or deficits. Neurovascular unremarkable. Neuro: Awake, alert, oriented. Cranial nerves II through XII unremarkable. Cerebellum unremarkable. Motor and sensory unremarkable throughout. Exam nonfocal. Notes: Patient states she did take hydrocodone and her muscle relaxer approximately an hour prior to arrival. She does appear drowsy although alert and oriented. Imaging today shows no acute findings. Vital signs are stable. Will not add any additional medications to her current regimen. Supportive care measures were reviewed and discussed. Voices understanding and is agreeable to plan of care. Denies any further questions or concerns at this time. Diagnostics: Cervical Spine CT, Right shoulder x-ray Therapeutics: Toradol (Declined) Prescription: None Impression: Muscular Strain Plan: 1. You may continue taking your muscle relaxer and prescribed pain medications as directed. 2. Tylenol and/or ibuprofen as needed for pain management. 3. Follow-up with her primary caregiver as we discussed. Return to the ED as needed and as discussed. Definitive disposition and diagnosis as appropriate pending reevaluation and review of above. Left Shoulder/Upper Back Pain Score (Numeric/FACES): 8 - Related Data Allergies Allergy/AdvReac Type Severity Reaction Status Date / Time No Known Allergies Allergy Verified 05/07/19 16:15 Home Meds: Home Meds Gabapentin [Neurontin] 1,800 mg PO DAILY 10/01/17 [History] Hydrocodone/Acetaminophen [Hydrocodon-Acetaminophn 10-325] 1 tab PO Q4H PRN [History] traZODone 100 mg PO BEDTIME PRN 10/01/17 [History] tiZANidine HCl [Tizanidine HCl] 1 tab PO DAILY 07/15/18 [History] Phenazopyridine HCl [Pyridium] 200 mg PO TID #9 tablet 08/12/18 [Rx] Omeprazole 20 mg PO DAILY 03/18/19 [History] Past Medical History HEENT History: Reports: Other (See Below), Sinusitis Other HEENT History: 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 Cardiovascular History: Reports: None Respiratory History: Reports: None Gastrointestinal History: Reports: Cholelithiasis Genitourinary History: Reports: UTI, Recurrent CONTROLS ENGINEER History: Reports: Other (See Below) Other CONTROLS ENGINEER History: infertility Musculoskeletal History: Reports: Fibromyalgia, Other (See Below) Other Musculoskeletal History: myofacial syndrome, Neurological History: Reports: Migraines, Other (See Below) Other Neuro History: Headaches Psychiatric History: Reports: Anxiety, Depression Endocrine/Metabolic History: Reports: Obesity/BMI 30+ Hematologic History: Reports: None Immunologic History: Reports: Other (See Below) Other Immunologic History: 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 Oncologic (Cancer) History: Reports: None Dermatologic History: Reports: None - Infectious Disease History Infectious Disease History: Reports: Chicken Pox - Past Surgical History Head Surgeries/Procedures: Reports: None HEENT Surgical History: Reports: None Cardiovascular Surgical History: Reports: None Respiratory Surgical History: Reports: None GI Surgical History: Reports: Cholecystectomy, Other (See Below) Female Surgical History: Reports: None Endocrine Surgical History: Reports: None Neurological Surgical History: Reports: None Musculoskeletal Surgical History: Reports: None Oncologic Surgical History: Reports: None Dermatological Surgical History: Reports: None Social & Family History - Family History Family Medical History: Noncontributory - Tobacco Use Smoking Status *Q: Current Every Day Smoker Years of Tobacco use: 22 Packs/Tins Daily: 1 - Caffeine Use Caffeine Use: Reports: Soda Caffeine Use Comment: daily - Recreational Drug Use Recreational Drug Use: No ED ROS GENERAL - Review of Systems Review Of Systems: ROS reveals no pertinent complaints other than HPI. ED EXAM, UPPER BACK/NECK PAIN - Physical Exam Exam: See Below (See dictation) Course - Vital Signs Last Recorded V/S: Last Vital Signs Temp 98.2 F 05/07/19 16:15 Pulse 78 05/07/19 16:15 Resp 18 05/07/19 16:15 BP 114/64 05/07/19 16:15 Pulse Ox 97 05/07/19 16:15 - Orders/Labs/Meds Orders: Active Orders 24 hr Category Date Time Status Shoulder Comp Lt [CR] Stat Exams 05/07/19 16:49 Taken Meds: Medications Discontinued Medications Generic Name Dose Route Start Last Admin Trade Name iAleen PRN Reason Stop Dose Admin Ketorolac Tromethamine 60 mg 05/07/19 16:50 Toradol IM 05/07/19 16:51 ONETIME ONE Departure - Departure Time of Disposition: 18:00 Disposition: Home, Self-Care 01 Clinical Impression: Muscle strain - Discharge Information Instructions: Muscle Strain, [id number] Referrals: Atilio Ahumada MD [Primary Care Provider] - Forms: ED Department Discharge Additional Instructions: The following information is given to patients seen in the emergency department who are being discharged to home. This information is to outline your options for follow-up care. We provide all patients seen in our emergency department with a follow-up referral. The need for follow-up, as well as the timing and circumstances, are variable depending upon the specifics of your emergency department visit. If you don't have a primary care physician on staff, we will provide you with a referral. We always advise you to contact your personal physician following an emergency department visit to inform them of the circumstance of the visit and for follow-up with them and/or the need for any referrals to a consulting specialist. The emergency department will also refer you to a specialist when appropriate. This referral assures that you have the opportunity for follow-up care with a specialist. All of these measure are taken in an effort to provide you with optimal care, which includes your follow-up. Under all circumstances we always encourage you to contact your private physician who remains a resource for coordinating your care. When calling for follow-up care, please make the office aware that this follow-up is from your recent emergency room visit. If for any reason you are refused follow-up, please contact the [facility] at and asked to speak to the emergency department charge nurse. [facility] [address] [place] [id number] [id number] 1. You may continue taking your muscle relaxer and prescribed pain medications as directed. 2. Tylenol and/or ibuprofen as needed for pain management. 3. Follow-up with her primary caregiver as we discussed. Return to the ED as needed and as discussed. - My Orders Last 24 Hours: My Active Orders 05/07/19 16:49 Shoulder Comp Lt [CR] Stat - Assessment/Plan Last 24 Hours: My Active Orders 05/07/19 16:49 Shoulder Comp Lt [CR] Stat
--- NOTE | 2019-05-07 17:58 | CT ---
INDICATION: Neck pain TECHNIQUE: Non-contrast axial CT of the cervical spine with coronal and sagittal reconstructions. No comparisons. FINDINGS: The overall stature and alignment of the cervical spine is within normal limits. Prevertebral soft tissues, cervical airway, dens and lateral masses are within normal limits. No evidence of bony fragments narrowing the central canal or visualized neural foramina. IMPRESSION: No radiographic evidence of acute osseous injury. Dictated by Soto Rodriguez MD @ 05/07/2019 5:57:45 PM Please note that all CT scans at this facility use dose modulation, iterative reconstruction, and/or weight-based dosing when appropriate to reduce radiation dose to as low as reasonably achievable. Dictated by: Soto Rodriguez MD @ 05/07/2019 17:57:51 (Electronically Signed)
--- NOTE | 2019-05-07 18:30 | CR ---
INDICATION: Pain left shoulder. COMPARISON: None. Technique: Three-view study left shoulder. FINDINGS: No evidence of fracture or dislocation. No bone or soft tissue abnormalities. IMPRESSION: Negative radiographic examination of the left shoulder. Dictated by Farhan Hodgson MD @ May 07 2019 6:27PM Signed by Dr. Farhan Hodgson @ May 07 2019 6:28PM
[2019-05-07 18:56] VITALS: BP 84/55
== END 2019-05-07 18:55 | disposition home or self-care (01) ==
LOC: MW.ED 15:50
DX: S16.1XXA Strain of muscle, fascia and tendon at neck level, initial encounter (principal); F17.210 Nicotine dependence, cigarettes, uncomplicated; F41.9 Anxiety disorder, unspecified; F32.9 Major depressive disorder, single episode, unspecified; Z79.899 Other long term (current) drug therapy; X58.XXXA Exposure to other specified factors, initial encounter
CPT/HCPCS: 72125; 72125-26; 73030-26-LT; 73030-LT; 99284; 99284-25

== ENCOUNTER 2019-08-09 07:07 | Inpatient (IN) | payer BC ==
[2019-08-09] MEDS ORDERED: Sodium Chloride 0.9% 1,000 ML IV ONE (07:17)
[2019-08-09] MEDS ORDERED: Ondansetron 4 MG/2 ML SDV IVPUSH ONE ×2 (07:17→09:07)
[2019-08-09 08:37] LABS: BLOOD UREA NITROGEN,BUN 11 mg/dL (7.0-18.0); CARBON DIOXIDE,CO2 26.6 mmol/L (21.0-32.0); CHLORIDE,CL 105 mmol/L (98-107); GLUCOSE RANDOM 108 mg/dL (74-106); POTASSIUM,K 3.9 mmol/L (3.5-5.1); SODIUM,NA 144 mmol/L (136-145)
--- NOTE | 2019-08-09 09:03 | EDM.PDOC ---
ED HPI GENERAL MEDICAL PROBLEM - General Chief Complaint: Abdominal Pain Stated Complaint: SOB,ABD PAIN Time Seen by Provider: 08/09/19 07:12 - History of Present Illness INITIAL COMMENTS - FREE TEXT/NARRATIVE: HISTORY AND PHYSICAL: History of present illness: Patient 44-year-old female status post abdominal hysterectomy from last Friday presents with a concern of nausea and vomiting she's had some abdominal discomfort she states that her bowel was injured and repaired at the time of surgery. She's been doing well until the last 24 hours and she is developed this somewhat intractable vomiting her abdominal pain has been modest. There is no reported fever chills or other complaints Review of systems: As per history of present illness and below otherwise all systems reviewed and negative. Past medical history: As per history of present illness and as reviewed below otherwise noncontributory. Surgical history: As per history of present illness and as reviewed below otherwise noncontributory. Social history: No reported history of drug or alcohol abuse. Family history: As per history of present illness and as reviewed below otherwise noncontributory. Physical exam: HEENT: Atraumatic, normocephalic, pupils reactive, negative for conjunctival pallor or scleral icterus, mucous membranes moist, throat clear, neck supple, nontender, trachea midline. Lungs: Clear to auscultation, breath sounds equal bilaterally, chest nontender. Heart: S1S2, regular, negative for clicks, rubs, or JVD. Abdomen: Soft, nondistended, incisional tenderness no rebound no guarding wound is well appearing with no discharge or evidence of superinfection Negative for masses or hepatosplenomegaly. Negative for costovertebral tenderness. Pelvis: Stable nontender. Genitourinary: Deferred. Rectal: Deferred. Extremities: Atraumatic, negative for cords or calf pain. Neurovascular unremarkable. Neuro: Awake, alert, oriented. Cranial nerves II through XII unremarkable. Cerebellum unremarkable. Motor and sensory unremarkable throughout. Exam nonfocal. Diagnostics: CBC CMP and lipase UA CT abdomen and pelvis chest x-ray Therapeutics: Saline 1 L bolus Zofran 4 mg IV Impression: #1 1 week status post abdominal hysterectomy #2 abdominal pain #3 vomiting Definitive disposition and diagnosis as appropriate pending reevaluation and review of above. abdominal Pain Score (Numeric/FACES): 9 - Related Data Allergies Allergy/AdvReac Type Severity Reaction Status Date / Time No Known Allergies Allergy Verified 08/09/19 07:12 Home Meds: Home Meds Gabapentin [Neurontin] 1,800 mg PO DAILY 10/01/17 [History] Hydrocodone/Acetaminophen [Hydrocodon-Acetaminophn 10-325] 1 tab PO Q4H PRN [History] traZODone 100 mg PO BEDTIME PRN 10/01/17 [History] tiZANidine HCl [Tizanidine HCl] 1 tab PO DAILY 07/15/18 [History] Omeprazole 20 mg PO DAILY 03/18/19 [History] hydrOXYzine pamoate [Hydroxyzine Pamoate] 25 mg PO QID 08/09/19 [History] Past Medical History HEENT History: Reports: Other (See Below), Sinusitis Other HEENT History: 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 Cardiovascular History: Reports: None Respiratory History: Reports: None Gastrointestinal History: Reports: Cholelithiasis Genitourinary History: Reports: UTI, Recurrent 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 TECHNICIAN History: Reports: Other (See Below) Other FISCAL TECHNICIAN History: infertility Musculoskeletal History: Reports: Fibromyalgia, Other (See Below) Other Musculoskeletal History: myofacial syndrome, Neurological History: Reports: Migraines, Other (See Below) Other Neuro History: Headaches Psychiatric History: Reports: Anxiety, Depression Endocrine/Metabolic History: Reports: Obesity/BMI 30+ Hematologic History: Reports: None Immunologic History: Reports: Other (See Below) Other Immunologic History: 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 Oncologic (Cancer) History: Reports: None Dermatologic History: Reports: None - Infectious Disease History Infectious Disease History: Reports: Chicken Pox - Past Surgical History Head Surgeries/Procedures: Reports: None HEENT Surgical History: Reports: None Cardiovascular Surgical History: Reports: None Respiratory Surgical History: Reports: None GI Surgical History: Reports: Cholecystectomy, Other (See Below) Female Surgical History: Reports: None, Hysterectomy Endocrine Surgical History: Reports: None Neurological Surgical History: Reports: None Musculoskeletal Surgical History: Reports: None Oncologic Surgical History: Reports: None Dermatological Surgical History: Reports: None Social & Family History - Family History Family Medical History: Noncontributory - Tobacco Use Smoking Status *Q: Current Every Day Smoker Years of Tobacco use: 20 Packs/Tins Daily: 1 - Caffeine Use Caffeine Use: Reports: Soda Caffeine Use Comment: daily - Recreational Drug Use Recreational Drug Use: No ED ROS GENERAL - Review of Systems Review Of Systems: Comprehensive ROS is negative, except as noted in HPI. ED EXAM, GENERAL - Physical Exam Exam: See Below (See dictation) Course - Vital Signs Last Recorded V/S: Last Vital Signs Temp 35.9 C 08/09/19 07:16 Pulse 97 08/09/19 09:51 Resp 18 08/09/19 09:51 BP 187/106 H 08/09/19 09:51 Pulse Ox 98 08/09/19 09:51 - Orders/Labs/Meds Orders: Active Orders 24 hr Category Date Time Status EKG Documentation Completion [RC] STAT Care 08/09/19 09:02 Active Labs: Laboratory Tests 08/09/19 08/09/19 08/09/19 Range/Units 08:00 08:00 08:00 WBC 10.50 (4.0-11.0) K/uL RBC 4.41 (4.30-5.90) M/uL Hgb 10.5 L (12.0-16.0) g/dL Hct 33.2 L (36.0-46.0) % MCV 75.3 L (80.0-98.0) fL MCH 23.8 L (27.0-32.0) pg MCHC 31.6 (31.0-37.0) g/dL RDW Std Deviation 44.3 (28.0-62.0) fl RDW Coeff of Aida 16 H (11.0-15.0) % Plt Count 434 H (150-400) K/uL MPV 8.90 (7.40-12.00) fL Neut % (Auto) 69.6 (48.0-80.0) % Lymph % (Auto) 18.8 (16.0-40.0) % [place] % (Auto) 6.7 (0.0-15.0) % Eos % (Auto) 4.5 (0.0-7.0) % Baso % (Auto) 0.4 (0.0-1.5) % Neut # (Auto) 7.3 H (1.4-5.7) K/uL Lymph # (Auto) 2.0 (0.6-2.4) K/uL [place] # (Auto) 0.7 (0.0-0.8) K/uL Eos # (Auto) 0.5 (0.0-0.7) K/uL Baso # (Auto) 0.0 (0.0-0.1) K/uL Nucleated RBC % 0.2 /100WBC Nucleated RBCs # 0 K/uL Sodium 144 (136-145) mmol/L Potassium 3.9 (3.5-5.1) mmol/L Chloride 105 (98-107) mmol/L Carbon Dioxide 26.6 (21.0-32.0) mmol/L BUN 11 (7.0-18.0) mg/dL Creatinine 0.8 (0.6-1.0) mg/dL Est Cr Clr Drug Dosing 75.78 mL/min Estimated GFR (MDRD) > 60.0 ml/min Glucose 108 H (74-106) mg/dL Calcium 8.9 (8.5-10.1) mg/dL Total Bilirubin 0.3 (0.2-1.0) mg/dL AST 29 (15-37) IU/L ALT 24 (14-63) IU/L Alkaline Phosphatase 143 H (46-116) U/L Total Protein 7.4 (6.4-8.2) g/dL Albumin 3.2 L (3.4-5.0) g/dL Globulin 4.2 H (2.6-4.0) g/dL Albumin/Globulin Ratio 0.8 L (0.9-1.6) Lipase 48 L (73-393) U/L Meds: Medications Discontinued Medications Generic Name Dose Route Start Last Admin Trade Name Duncanq PRN Reason Stop Dose Admin Hydromorphone HCl 2 mg 08/09/19 12:39 08/09/19 12:44 Dilaudid IVPUSH 08/09/19 12:40 2 mg ONETIME ONE Administration Sodium Chloride 1,000 mls @ 999 mls/hr 08/09/19 07:17 08/09/19 08:06 Normal Saline IV 08/09/19 08:17 999 mls/hr .Bolus ONE Administration Iopamidol 100 ml 08/09/19 10:33 08/09/19 10:34 Isovue-370 (76%) IVPUSH 08/09/19 10:34 100 ml ONETIME STA Administration Morphine Sulfate 4 mg 08/09/19 09:15 12/02/19 09:50 Morphine IVPUSH 08/09/19 09:16 4 mg ONETIME ONE Administration Morphine Sulfate 3 mg 08/09/19 12:28 08/09/19 12:43 Morphine IVPUSH 08/09/19 12:29 Not Given ONETIME ONE Ondansetron HCl 4 mg 08/09/19 07:17 08/09/19 08:07 Zofran IVPUSH 08/09/19 07:18 4 mg ONETIME ONE Administration Ondansetron HCl 4 mg 08/09/19 09:07 08/09/19 09:12 Zofran IVPUSH 08/09/19 09:08 4 mg ONETIME ONE Administration Departure - Departure Time of Disposition: 13:12 Disposition: Refer to Observation Condition: Good Clinical Impression: Vomiting Abdominal pain Qualifiers: Abdominal location: upper abdomen, unspecified Qualified Code(s): R10.10 - Upper abdominal pain, unspecified - Discharge Information Referrals: Atilio Ahumada MD [Primary Care Provider] - Forms: ED Department Discharge - My Orders Last 24 Hours: My Active Orders 08/09/19 09:02 EKG Documentation Completion [RC] STAT - Assessment/Plan Last 24 Hours: My Active Orders 08/09/19 09:02 EKG Documentation Completion [RC] STAT
[2019-08-09] MEDS ORDERED: Morphine 4 MG/ML Syringe IVPUSH ONE ×2 (09:15→12:28)
--- NOTE | 2019-08-09 10:26 | CR ---
EXAM DATE: 08/09/19 PATIENT'S AGE: 44 Chest: AP portable view of the chest was obtained. Comparison: Previous chest x-ray of 04/25/16. Heart size and mediastinum are normal. Linear density is noted within the right upper lung which is more prominent than on prior study presumably due to his focal atelectasis. Minimal atelectasis within the lingula or left base. Lungs otherwise are clear. Cardiac silhouette and mediastinum are normal. Bony structures are grossly intact. Impression: 1. Thick area of atelectasis within the right upper lung. Minimal atelectasis within the lingula or left base. 2. Nothing acute is otherwise seen on AP portable chest x-ray. Diagnostic code #3 This report was dictated in [place] Standard Time Report Signed by Proxy. CHRISTIE
--- NOTE | 2019-08-09 10:31 | CT ---
EXAM DATE: 08/09/19 PATIENT'S AGE: 44 CT abdomen and pelvis Technique: Multiple axial sections were obtained from above the dome of the diaphragm inferiorly through the pubic symphysis. Intravenous contrast was utilized. No oral contrast was given. Comparison: No prior CT abdomen or pelvis exam is available. Findings: Visualized lung bases shows increased density most likely representing areas of atelectasis. Liver contains no focal parenchymal abnormality. Spleen appears within normal limits. Kidneys show symmetric contrast enhancement without hydronephrosis or mass. Aorta shows no aneurysm. Pancreas is within normal limits. Surgical clips are seen from prior cholecystectomy. Small retroperitoneal lymph nodes are seen which are more numerous than usually appreciated but are likely incidental. There is mild bowel dilatation within small bowel. There is questionable scarring and adhesions of portions of small bowel to the anterior abdominal wall structures. Fluid is seen within the rectum. Air is noted within area of the umbilicus within the abdominal wall. Slight increased density within the left anterior abdominal wall presumably due to subcutaneous injections. Previous hysterectomy is noted. Small amount of increased fluid seen within the left side of the pelvis. Bone window settings were reviewed which shows no acute osseous finding. Appendix not visualized with certainty. Impression: 1. Abnormal appearing bowel with dilated small bowel containing fluid. There is presumed adhesions of portions of small bowel against the anterior abdominal wall. There is a bowel wall thickening are seen which may relate to previous surgery or chemotherapy as well as representing changes of infection or other etiologies of enteritis. 2. Bibasilar atelectasis. Small amount of ascites within the left side of the pelvis. 3. No other acute finding is appreciated. Diagnostic code #3 This report was dictated in [place] Standard Time Report Signed by Proxy. [facility]
[2019-08-09] MEDS ORDERED: Iopamidol 755 Mg/ML 100 ML Bottle IVPUSH STA (10:33)
[2019-08-09] MEDS ORDERED: HYDROmorphone 2 MG/ML Syringe IVPUSH ONE (12:39)
--- NOTE | 2019-08-09 13:29 | PCM.SN ---
- Free Text/Narrative Note: admission h/p [id number]; admitted for observation for possible postop ileus vs early bowel obstruction vs wound infection; npo, ice chip, follow with serial abd exam and blood work; if emisis, will insert ngt
[2019-08-09] MEDS ORDERED: Ondansetron 4 MG/2 ML SDV IVPUSH PRN (13:30)
[2019-08-09] MEDS ORDERED: Acetaminophen/oxyCODONE 325-10 MG Tab PO PRN (13:37)
[2019-08-09] MEDS: Lactated Ringers 1,000 ML IV SCH ×2 (15:10→23:29)
[2019-08-09] MEDS ORDERED: Acetaminophen/HYDROcodone 325-10 MG Tab PO PRN (16:23)
--- NOTE | 2019-08-09 16:34 | CONS ---
DATE OF CONSULTATION: 08/09/2019 DATE OF : 1975 PRIMARY CARE PHYSICIAN: Atilio Ahumada MD REFERRING PHYSICIAN: Dave Knapp M.D. CONCERNING QUESTION: Postop pain as well as nausea and vomiting. HISTORY OF PRESENT ILLNESS: The patient is a 44-year-old lady, morbidly obese, BMI of 41, is postop day #7 from prior surgery at [facility]. The patient had a total abdominal hysterectomy and was reportedly doing fine, stayed there for 4 days and then was discharged on and today is Friday. However, the patient started to feel increased pain 24 hours ago and also nausea and vomiting and runny diarrhea. Denied fever, chill, and the patient had a dose of Dilaudid or morphine in the emergency room, and the patient is feeling better, but still holding a nausea bag in front of her in case she wants to throw up. The patient has very complex surgical history. The patient was premature, born with gastroparesis and had multiple surgeries prior to the age of 4 and subsequently a bowel obstruction and subsequent surgery. Also had open cholecystectomy at age 23 and had bowel surgery in early age. PAST MEDICAL HISTORY: Denied diabetic, MT, CVA. The patient has history of hypertension. ALLERGIES: Please refer to nursing for details. MEDICATION: Please refer to nursing for details. PAST SURGICAL HISTORY: Of note, her most recent surgical history, total abdominal hysterectomy, was having complication. During the surgery, according to the op note, had a trocar injury into the small bowel and was repair primary and no bowel resection. SOCIAL HISTORY: The patient is a smoker. Denies alcohol use. PHYSICAL EXAMINATION: GENERAL: A very anxious lady and smiled to the doctor, very polite, sitting in bedside, complaining about pain of 10/10. HEENT: Normocephalic and atraumatic. Sclerae are anicteric. LUNGS: Clear to auscultation. HEART: Regular rate and rhythm. ABDOMEN: Soft but guarding and midline incision was with Steri-Strip and no expressed material but has pretty subjective tenderness and no rebound tenderness and no expressed material. LABORATORY DATA: Upon consultation, white count 10.5, H and H of 10 and 33, and platelet is 430. BUN is 11, creatinine is 0.8, total bilirubin is 0.3, alkaline phosphatase is 143. CAT scan reports abnormal-appearing bowel with dilated small bowel containing fluid and fluid around the left side of the pelvis and possible adhesion in the portion of small bowel against the anterior abdominal wall. IMPRESSION: The patient may have postop ileus as the patient is taking pain medication even in postop #7, she is still on 10/325 Percocet and took 2 this morning. Either midline wound infection versus postop ileus versus possible early bowel obstruction. I had a long discussion with the patient. The patient demanded or requested to speak with her surgeon in [place] and discussed with Dr. Jimenez, agreed to have the patient admitted here for observation and treat the postop ileus and also discussed with the patient with her multiple complex surgical history and BMI of 41, if surgical need arise, probably would benefit to return to the original surgeon. All 3 parties understand. We will keep an eye over here, treat postop ileus and also patient agreed that it probably would be very measured regarding her narcotic use as that would accentuate her postop ileus. We will admit, n.p.o., ice chip, and if nausea persists or emesis, the patient will progress to have NG tube insertion. The patient agreed to treatment. We will monitor with serial abdominal exam as well as laboratory value. As always, thank you for the kind referral. GI / REHANA /[id number]
[2019-08-09] MEDS: Metoclopramide 10 MG/2 ML SDV IV SCH ×2 (17:02→23:24)
[2019-08-09] MEDS: Ketorolac 30 MG/ML SDV IVPUSH PRN (17:02)
[2019-08-09] MEDS: Nicotine 21 MG/24 Hr Patch TRDERM SCH (17:11)
[2019-08-09] MEDS ORDERED: Lidocaine 2% Jelly 30 ML Tube MUCMEM ONE (17:33)
[2019-08-09] MEDS ORDERED: Benzocaine 20% Topical Spray UD MUCMEM ONE (17:34)
[2019-08-09] MEDS: Acetaminophen/HYDROcodone 325-10 MG Tab PO PRN (19:42)
[2019-08-09] MEDS ORDERED: Rizatriptan Benzoate [Rizatriptan] 10 MG PO PRN (20:38)
[2019-08-09] MEDS ORDERED: tiZANidine 4 MG Tab PO PRN (21:00)
[2019-08-09] MEDS ORDERED: Desvenlafaxine [Desvenlafaxine Er] 100 MG PO SCH (21:00)
[2019-08-09] MEDS ORDERED: Diatrizoate Meglumine/Diatrizoate Sodium 37% 30 ML Bottle PO ONE (21:30)
[2019-08-09] MEDS: Gabapentin 100 MG Cap PO SCH (22:23)
[2019-08-09] MEDS: Gabapentin 800 MG Tab PO SCH (22:23)
[2019-08-09 22:25] LABS: BLOOD UREA NITROGEN,BUN 11 mg/dL (7.0-18.0); CARBON DIOXIDE,CO2 26.7 mmol/L (21.0-32.0); CHLORIDE,CL 105 mmol/L (98-107); GLUCOSE RANDOM 107 mg/dL (74-106); POTASSIUM,K 3.8 mmol/L (3.5-5.1); SODIUM,NA 143 mmol/L (136-145)
--- NOTE | 2019-08-10 00:34 | CT ---
INDICATION: Severe abdominal pain with vomiting TECHNIQUE: CT abdomen and pelvis acquired with oral contrast. COMPARISON: August 09, 2019 at 9:35 a.m. FINDINGS: Lower chest: Scattered linear atelectasis. Liver: Unremarkable. Spleen: Unremarkable. Pancreas: Unremarkable. Gallbladder and bile ducts: S/p cholecystectomy. Adrenal glands: Unremarkable. Kidneys: Unremarkable. GI tract: Oral contrast is mostly within the stomach. Small amount in the proximal small bowel. Small amount of pneumoperitoneum. Loops of dilated small bowel appear similar compared to the prior exam. These measure up to 3.8 cm in diameter. Small amount of free fluid in the upper abdomen and left lower quadrant is unchanged. Mild, generalized mesenteric fat stranding. Notably most of the colon is in the right abdomen with the small bowel in both sides of the abdomen. This may be postoperative from surgical repair of gastroschisis as an . Vascular structures: Unremarkable. Lymph nodes: Unremarkable. Miscellaneous: Unremarkable. No free air or significant free fluid. Pelvic Organs: Status post hysterectomy. Residual intravenous contrast in the urinary bladder from recent IV contrast-enhanced exam. Bones: Unremarkable for age. IMPRESSION: Small amount of pneumoperitoneum is consistent with hysterectomy 6 days ago. Dilated loops of fluid-filled small bowel, mesenteric fat stranding, and small amount of free fluid are most consistent with a small-bowel obstruction. The appearance of the bowel and mesentery is quite similar compared to the study done August 09 2019 at 9:39 a.m.. Status post cholecystectomy. Findings discussed with Dr. Harvey at 12:30 a.m. on August 10, 2019. Please note that all CT scans at this facility use dose modulation, iterative reconstruction, and/or weight-based dosing when appropriate to reduce radiation dose to as low as reasonably achievable. Dictated by Kiesha Levin MD @ Aug 10 2019 12:06AM Signed by Dr. Kiesha Levin @ Aug 10 2019 12:33AM
--- NOTE | 2019-08-10 00:58 | PCM.SN ---
- Free Text/Narrative Note: radiologist called, related ct reading, contrast mainly stayed in stomach; no extravasation noted; read as SBO; lactic acid 1.2, wnl; wbc 10.3, not much different from 10.5 yesterday; pt had emisis yesterday, ordered ngt insertion; and now ct read SBO, will continue to advice ngt insertion; pt may benefit from a delay cut in the morning; send UA in the morning;
[2019-08-10] MEDS ORDERED: Lidocaine 2% Viscous Solution 15 ML Cup PO ONE (00:59)
[2019-08-10] MEDS: Ketorolac 30 MG/ML SDV IVPUSH PRN ×4 (01:36→23:05)
--- NOTE | 2019-08-10 02:19 | CR ---
Indication: NG tube placement Technique: Chest 1 view Comparison: CT abdomen pelvis August 09, 2019, chest radiograph April 25, 2016. Findings/Impression: A gastric drainage tube tip terminates at the level of the mid stomach. Stable cardiac size. Clear lungs and pleural spaces. Dictated by Kiesha Levin MD @ Aug 10 2019 2:17AM Signed by Dr. Kiesha Levin @ Aug 10 2019 2:17AM
[2019-08-10] MEDS: Acetaminophen/HYDROcodone 325-10 MG Tab PO PRN ×2 (03:53→20:51)
[2019-08-10] MEDS: Metoclopramide 10 MG/2 ML SDV IV SCH ×4 (06:05→23:10)
[2019-08-10 06:48] LABS: BLOOD UREA NITROGEN,BUN 10 mg/dL (7.0-18.0); CARBON DIOXIDE,CO2 26.8 mmol/L (21.0-32.0); CHLORIDE,CL 105 mmol/L (98-107); GLUCOSE RANDOM 112 mg/dL (74-106); POTASSIUM,K 3.9 mmol/L (3.5-5.1); SODIUM,NA 143 mmol/L (136-145)
[2019-08-10] MEDS: Omeprazole 20 MG Cap.CR PO SCH (06:54)
[2019-08-10] MEDS: Cholecalciferol (Vitamin D3) 25 MCG Tab PO SCH (08:56)
[2019-08-10] MEDS: Cyanocobalamin (Vitamin B12) 500 MCG Tab PO SCH (08:56)
[2019-08-10] MEDS: Nicotine 21 MG/24 Hr Patch TRDERM SCH (09:01)
[2019-08-10] MEDS: Lactated Ringers 1,000 ML IV SCH ×2 (09:06→16:58)
--- NOTE | 2019-08-10 09:38 | PCM.SURGPN ---
- General Info Date of Service: 08/10/19 - Review of Systems General: Reports: No Symptoms (had a semiformed small BM, pain remained the same ; nausea when ngt not working) - Patient Data Vitals - Most Recent: Last Vital Signs Temp 98.5 F 08/10/19 08:00 Pulse 96 08/10/19 08:00 Resp 18 08/10/19 08:00 BP 150/90 H 08/10/19 08:00 Pulse Ox 96 08/10/19 08:00 Weight - Most Recent: 231 lb 11.293 oz I&O - Last 24 Hours: Intake & Output 08/09/19 08/10/19 08/10/19 22:59 06:59 14:59 Intake Total 25 1542 Output Total 600 1920 Balance -575 -378 Lab Results Last 24 Hrs: Laboratory Results - last 24 hr 08/09/19 08/09/19 08/09/19 Range/Units 22:00 22:00 22:00 WBC 10.33 (4.0-11.0) K/uL RBC 4.14 L (4.30-5.90) M/uL Hgb 10.0 L (12.0-16.0) g/dL Hct 31.1 L (36.0-46.0) % MCV 75.1 L (80.0-98.0) fL MCH 24.2 L (27.0-32.0) pg MCHC 32.2 (31.0-37.0) g/dL RDW Std Deviation 43.2 (28.0-62.0) fl RDW Coeff of Aida 16 H (11.0-15.0) % Plt Count 446 H (150-400) K/uL MPV 8.60 (7.40-12.00) fL Neut % (Auto) 68.9 (48.0-80.0) % Lymph % (Auto) 19.7 (16.0-40.0) % [place] % (Auto) 6.5 (0.0-15.0) % Eos % (Auto) 4.6 (0.0-7.0) % Baso % (Auto) 0.3 (0.0-1.5) % Neut # (Auto) 7.1 H (1.4-5.7) K/uL Lymph # (Auto) 2.0 (0.6-2.4) K/uL [place] # (Auto) 0.7 (0.0-0.8) K/uL Eos # (Auto) 0.5 (0.0-0.7) K/uL Baso # (Auto) 0.0 (0.0-0.1) K/uL Lactate 1.2 (0.20-2.00) mmol/L Sodium 143 (136-145) mmol/L Potassium 3.8 (3.5-5.1) mmol/L Chloride 105 (98-107) mmol/L Carbon Dioxide 26.7 (21.0-32.0) mmol/L BUN 11 (7.0-18.0) mg/dL Creatinine 0.8 (0.6-1.0) mg/dL Est Cr Clr Drug Dosing 75.78 mL/min Estimated GFR (MDRD) > 60.0 ml/min Glucose 107 H (74-106) mg/dL Calcium 8.7 (8.5-10.1) mg/dL Total Bilirubin 0.3 (0.2-1.0) mg/dL AST 31 (15-37) IU/L ALT 27 (14-63) IU/L Alkaline Phosphatase 141 H (46-116) U/L Total Protein 6.9 (6.4-8.2) g/dL Albumin 3.0 L (3.4-5.0) g/dL Globulin 3.9 (2.6-4.0) g/dL Albumin/Globulin Ratio 0.8 L (0.9-1.6) Urine Color Urine Appearance Urine pH (5.0-8.0) Ur Specific [place] (1.001-1.035) Urine Protein (NEGATIVE) mg/dL Urine Glucose (UA) (NEGATIVE) mg/dL Urine Ketones (NEGATIVE) mg/dL Urine Occult Blood (NEGATIVE) Urine Nitrite (NEGATIVE) Urine Bilirubin (NEGATIVE) Urine Urobilinogen (<2.0) EU/dL Ur Leukocyte Esterase (NEGATIVE) Urine RBC (0-2/HPF) Urine WBC (0-5/HPF) Ur Epithelial Cells (NONE-FEW) Urine Bacteria (NEGATIVE) Urine Mucus (NONE-MOD) 08/10/19 08/10/19 08/10/19 Range/Units 03:45 06:04 06:04 WBC 11.56 H (4.0-11.0) K/uL RBC 4.35 (4.30-5.90) M/uL Hgb 10.4 L (12.0-16.0) g/dL Hct 31.8 L (36.0-46.0) % MCV 73.1 L (80.0-98.0) fL MCH 23.9 L (27.0-32.0) pg MCHC 32.7 (31.0-37.0) g/dL RDW Std Deviation 42.0 (28.0-62.0) fl RDW Coeff of Aida 16 H (11.0-15.0) % Plt Count 452 H (150-400) K/uL MPV 8.80 (7.40-12.00) fL Neut % (Auto) 77.7 (48.0-80.0) % Lymph % (Auto) 14.3 L (16.0-40.0) % [place] % (Auto) 5.4 (0.0-15.0) % Eos % (Auto) 2.3 (0.0-7.0) % Baso % (Auto) 0.3 (0.0-1.5) % Neut # (Auto) 9.0 H (1.4-5.7) K/uL Lymph # (Auto) 1.7 (0.6-2.4) K/uL [place] # (Auto) 0.6 (0.0-0.8) K/uL Eos # (Auto) 0.3 (0.0-0.7) K/uL Baso # (Auto) 0.0 (0.0-0.1) K/uL Lactate (0.20-2.00) mmol/L Sodium 143 (136-145) mmol/L Potassium 3.9 (3.5-5.1) mmol/L Chloride 105 (98-107) mmol/L Carbon Dioxide 26.8 (21.0-32.0) mmol/L BUN 10 (7.0-18.0) mg/dL Creatinine 0.7 (0.6-1.0) mg/dL Est Cr Clr Drug Dosing 86.60 mL/min Estimated GFR (MDRD) > 60.0 ml/min Glucose 112 H (74-106) mg/dL Calcium 8.4 L (8.5-10.1) mg/dL Total Bilirubin 0.3 (0.2-1.0) mg/dL AST 27 (15-37) IU/L ALT 29 (14-63) IU/L Alkaline Phosphatase 146 H (46-116) U/L Total Protein 6.6 (6.4-8.2) g/dL Albumin 3.1 L (3.4-5.0) g/dL Globulin 3.5 (2.6-4.0) g/dL Albumin/Globulin Ratio 0.9 (0.9-1.6) Urine Color YELLOW Urine Appearance CLEAR Urine pH 7.0 (5.0-8.0) Ur Specific [place] 1.020 (1.001-1.035) Urine Protein NEGATIVE (NEGATIVE) mg/dL Urine Glucose (UA) NEGATIVE (NEGATIVE) mg/dL Urine Ketones 15 H (NEGATIVE) mg/dL Urine Occult Blood NEGATIVE (NEGATIVE) Urine Nitrite NEGATIVE (NEGATIVE) Urine Bilirubin NEGATIVE (NEGATIVE) Urine Urobilinogen 0.2 (<2.0) EU/dL Ur Leukocyte Esterase NEGATIVE (NEGATIVE) Urine RBC 0-1 (0-2/HPF) Urine WBC 0-1 (0-5/HPF) Ur Epithelial Cells FEW (NONE-FEW) Urine Bacteria RARE (NEGATIVE) Urine Mucus LIGHT (NONE-MOD) Med Orders - Current: Current Medications Hydrocodone Bitart/Acetaminophen (Brooks 325-10 Mg) 1 tab PO Q6H PRN PRN Reason: PAIN Last Admin: 08/10/19 03:53 Dose: 1 tab Cholecalciferol (Vitamin D3) 25 mcg PO DAILY [facility] Last Admin: 08/10/19 08:56 Dose: 25 mcg Cyanocobalamin (Vitamin B12) 1,000 mcg PO DAILY [facility] Last Admin: 08/10/19 08:56 Dose: 1,000 mcg Gabapentin (Neurontin) 1,600 mg PO BEDTIME [facility] Last Admin: 08/09/19 22:23 Dose: Not Given Gabapentin (Neurontin) 200 mg PO BEDTIME [facility] Last Admin: 08/09/19 22:23 Dose: Not Given Hydroxyzine Pamoate (Vistaril) 25 mg PO BID PRN PRN Reason: Anxiety Lactated Ringer's (Ringers, Lactated) 1,000 mls @ 125 mls/hr IV ASDIRECTED [facility] Last Admin: 08/10/19 09:06 Dose: 125 mls/hr Ketorolac Tromethamine (Toradol) 30 mg IVPUSH Q6H PRN PRN Reason: PAIN Last Admin: 08/10/19 08:56 Dose: 30 mg Metoclopramide HCl (Reglan) 10 mg IV Q6H [facility] Last Admin: 08/10/19 06:05 Dose: 10 mg Nicotine (Habitrol) 21 mg TRDERM DAILY [facility] Stop: 08/16/19 09:00 Last Admin: 08/10/19 09:01 Dose: 21 mg Omeprazole (Omeprazole) 20 mg PO ACBREAKFAST [facility] Last Admin: 08/10/19 06:54 Dose: 20 mg Ondansetron HCl (Zofran) 4 mg IVPUSH Q8H PRN PRN Reason: Nausea/Vomiting Last Admin: 08/09/19 19:42 Dose: 4 mg Rizatriptan Benzoate ([Rizatriptan] 10 Mg) 0 each PO DAILY PRN PRN Reason: Headache Desvenlafaxine [ Desvenlafaxine Er] 100 Mg 0 each PO BEDTIME [facility] Tizanidine HCl (Zanaflex) 4 mg PO BID PRN PRN Reason: muscle spasms Last Admin: 08/09/19 21:10 Dose: 4 mg Trazodone HCl (Trazodone Hcl) 100 mg PO BEDTIME PRN PRN Reason: Insomnia Discontinued Medications Hydrocodone Bitart/Acetaminophen (Brooks 325-10 Mg) 1 tab PO Q8H PRN PRN Reason: PAIN Benzocaine (Hurricaine One 20%) 1 each MUCMEM ONETIME ONE Stop: 08/09/19 17:35 Last Admin: 08/09/19 18:46 Dose: 1 each Diatrizoate Meglum/Diatrizoate Sod (Gastrografin 37%) 30 ml PO ONETIME ONE Stop: 08/09/19 21:31 Last Admin: 08/09/19 23:02 Dose: 30 ml Hydromorphone HCl (Dilaudid) 2 mg IVPUSH ONETIME ONE Stop: 08/09/19 12:40 Last Admin: 08/09/19 12:44 Dose: 2 mg Sodium Chloride (Normal Saline) 1,000 mls @ 999 mls/hr IV .Bolus ONE Stop: 08/09/19 08:17 Last Admin: 08/09/19 08:06 Dose: 999 mls/hr Iopamidol (Isovue-370 (76%)) 100 ml IVPUSH ONETIME STA Stop: 08/09/19 10:34 Last Admin: 08/09/19 10:34 Dose: 100 ml Lidocaine HCl (Xylocaine 2% Jelly) 1 ml MUCMEM ONETIME ONE Stop: 08/09/19 17:34 Last Admin: 08/09/19 18:46 Dose: 1 ml Lidocaine HCl (Xylocaine 2% Viscous) 15 ml PO ONETIME ONE Stop: 08/10/19 01:00 Last Admin: 08/10/19 01:18 Dose: 15 ml Morphine Sulfate (Morphine) 4 mg IVPUSH ONETIME ONE Stop: 08/09/19 09:16 Last Admin: 08/09/19 09:50 Dose: 4 mg Morphine Sulfate (Morphine) 3 mg IVPUSH ONETIME ONE Stop: 08/09/19 12:29 Last Admin: 08/09/19 12:43 Dose: Not Given Ondansetron HCl (Zofran) 4 mg IVPUSH ONETIME ONE Stop: 08/09/19 07:18 Last Admin: 08/09/19 08:07 Dose: 4 mg Ondansetron HCl (Zofran) 4 mg IVPUSH ONETIME ONE Stop: 08/09/19 09:08 Last Admin: 08/09/19 09:12 Dose: 4 mg Desvenlafaxine [ Desvenlafaxine Er] 100 Mg 100 each PO BEDTIME ART - Exam GI/Abdominal Exam: Soft, No Distention (ML incision cdi, no expressible materials/erythema) Skin: Warm, Dry - Problem List Review Problem List Initiated/Reviewed/Updated: Yes - My Orders Last 24 Hours: Active Orders 24 hr Category Date Time Status Admission Status [Patient Status] [ADT] Stat ADT 08/09/19 13:14 Active Patient Status [ADT] Routine ADT 08/10/19 09:29 Ordered Communication Order [RC] ROUTINE Care 08/09/19 13:35 Active Communication Order [RC] ROUTINE Care 08/09/19 13:40 Active Intake and Output Strict [RC] Q12H Care 08/10/19 01:01 Active Nasogastric Tube Management [Gastrointestinal Tube Mgmt Care 08/09/19 17:34 Active ] [RC] ASDIRECTED Nothing per Oral After Midnight Diet [DIET] Diet 08/09/19 Dinner Active Acetaminophen/HYDROcodone [Brooks 325-10 MG] Med 08/09/19 16:45 Active 1 tab PO Q6H PRN Cholecalciferol (Vitamin D3) [Vitamin D3] Med 08/10/19 09:00 Active 25 mcg PO DAILY Cyanocobalamin (Vitamin B12) [Vitamin B12] Med 08/10/19 09:00 Active 1,000 mcg PO DAILY Gabapentin [Neurontin] Med 08/09/19 21:00 Active 1,600 mg PO BEDTIME Gabapentin [Neurontin] Med 08/09/19 21:00 Active 200 mg PO BEDTIME Ketorolac [Toradol] Med 08/09/19 16:44 Active 30 mg IVPUSH Q6H PRN Lactated Ringers [Ringers, Lactated] 1,000 ml Med 08/09/19 13:30 Active IV ASDIRECTED Metoclopramide [Reglan] Med 08/09/19 17:00 Active 10 mg IV Q6H Nicotine [Habitrol] Med 08/09/19 16:30 Active 21 mg TRDERM DAILY Omeprazole Med 08/10/19 07:30 Active 20 mg PO ACBREAKFAST Ondansetron [Zofran] Med 08/09/19 13:30 Active 4 mg IVPUSH Q8H PRN Patient's Own Medication [Ptom] Med 08/10/19 21:00 Active 0 each PO BEDTIME Patient's Own Medication [Ptom] Med 08/09/19 20:38 Active 0 each PO DAILY PRN hydrOXYzine pamoate [Vistaril] Med 08/09/19 20:38 Active 25 mg PO BID PRN tiZANidine [Zanaflex] Med 08/09/19 21:00 Active 4 mg PO BID PRN traZODone HCl Med 08/09/19 20:38 Active 100 mg PO BEDTIME PRN Nasogastric Orogastric Tube Insertion [OM.PC] Routine Oth 08/09/19 17:34 Ordered Resuscitation Status Routine Resus Stat 08/09/19 19:16 Ordered Medication Orders Hydrocodone Bitart/Acetaminophen (Brooks 325-10 Mg) 1 tab PO Q6H PRN PRN Reason: PAIN Last Admin: 08/10/19 03:53 Dose: 1 tab Admin: 08/09/19 19:42 Dose: 1 tab Cholecalciferol (Vitamin D3) 25 mcg PO DAILY [facility] Last Admin: 08/10/19 08:56 Dose: 25 mcg Cyanocobalamin (Vitamin B12) 1,000 mcg PO DAILY [facility] Last Admin: 08/10/19 08:56 Dose: 1,000 mcg Gabapentin (Neurontin) 1,600 mg PO BEDTIME [facility] Last Admin: 08/09/19 22:23 Dose: Not Given Gabapentin (Neurontin) 200 mg PO BEDTIME [facility] Last Admin: 08/09/19 22:23 Dose: Not Given Hydroxyzine Pamoate (Vistaril) 25 mg PO BID PRN PRN Reason: Anxiety Lactated Ringer's (Ringers, Lactated) 1,000 mls @ 125 mls/hr IV ASDIRECTED [facility] Last Admin: 08/10/19 09:06 Dose: 125 mls/hr Infusion: 08/10/19 07:29 Dose: 125 mls/hr Admin: 08/09/19 23:29 Dose: 125 mls/hr Infusion: 08/09/19 23:10 Dose: 125 mls/hr Admin: 08/09/19 15:10 Dose: 125 mls/hr Ketorolac Tromethamine (Toradol) 30 mg IVPUSH Q6H PRN PRN Reason: PAIN Last Admin: 08/10/19 08:56 Dose: 30 mg Admin: 08/10/19 01:36 Dose: 30 mg Admin: 08/09/19 17:02 Dose: 30 mg Metoclopramide HCl (Reglan) 10 mg IV Q6H [facility] Last Admin: 08/10/19 06:05 Dose: 10 mg Admin: 08/09/19 23:24 Dose: 10 mg Admin: 08/09/19 17:02 Dose: 10 mg Nicotine (Habitrol) 21 mg TRDERM DAILY [facility] Stop: 08/16/19 09:00 Last Admin: 08/10/19 09:01 Dose: 21 mg Admin: 08/09/19 17:11 Dose: 21 mg Omeprazole (Omeprazole) 20 mg PO ACBREAKFAST [facility] Last Admin: 08/10/19 06:54 Dose: 20 mg Ondansetron HCl (Zofran) 4 mg IVPUSH Q8H PRN PRN Reason: Nausea/Vomiting Last Admin: 08/09/19 19:42 Dose: 4 mg Rizatriptan Benzoate ([Rizatriptan] 10 Mg) 0 each PO DAILY PRN PRN Reason: Headache Desvenlafaxine [ Desvenlafaxine Er] 100 Mg 0 each PO BEDTIME [facility] Tizanidine HCl (Zanaflex) 4 mg PO BID PRN PRN Reason: muscle spasms Last Admin: 08/09/19 21:10 Dose: 4 mg Trazodone HCl (Trazodone Hcl) 100 mg PO BEDTIME PRN PRN Reason: Insomnia - Assessment Assessment (Free Text/Narrative):: continue ngt suction, low wall suction encourage incentive spirometer nicotine patch taper pain meds if tolerate up in chair TID walk in hallway tid - Plan Plan (Free Text/Narrative):: continue ngt suction, low wall suction encourage incentive spirometer nicotine patch taper pain meds if tolerate up in chair TID walk in hallway tid
[2019-08-10] MEDS: hydrOXYzine Pamoate 25 MG Cap PO PRN ×2 (13:28→21:39)
--- NOTE | 2019-08-10 17:32 | PCM.SN ---
- Free Text/Narrative Note: pt reported pain is much better, and had 2 large BM, 2nd one is well formed; and would do ngt clamp tomorrow morning X 3 hrs, if tolerate, will dc ngt to po full liquid diet, if tolerate, and progress well, possible home
[2019-08-10] MEDS: Gabapentin 800 MG Tab PO SCH (20:50)
[2019-08-10] MEDS: Gabapentin 100 MG Cap PO SCH (20:50)
[2019-08-10] MEDS ORDERED: Desvenlafaxine [Desvenlafaxine Er] 100 MG PO SCH (21:00)
[2019-08-11] MEDS: Lactated Ringers 1,000 ML IV SCH ×2 (01:12→10:08)
[2019-08-11] MEDS: Acetaminophen/HYDROcodone 325-10 MG Tab PO PRN ×2 (03:45→15:01)
[2019-08-11] MEDS: Metoclopramide 10 MG/2 ML SDV IV SCH ×2 (05:12→10:10)
[2019-08-11 06:57] LABS: BLOOD UREA NITROGEN,BUN 11 mg/dL (7.0-18.0); CARBON DIOXIDE,CO2 28.5 mmol/L (21.0-32.0); CHLORIDE,CL 104 mmol/L (98-107); GLUCOSE RANDOM 110 mg/dL (74-106); LIPASE 53 U/L (73-393); POTASSIUM,K 3.1 mmol/L (3.5-5.1); SODIUM,NA 143 mmol/L (136-145)
[2019-08-11] MEDS: Ketorolac 30 MG/ML SDV IVPUSH PRN (07:52)
[2019-08-11] MEDS: Nicotine 21 MG/24 Hr Patch TRDERM SCH (10:09)
--- NOTE | 2019-08-11 11:21 | PCM.SURGPN ---
- General Info Date of Service: 08/11/19 Functional Status: Reports: Pain Controlled (BM X 2 w flatus, well formed) - Review of Systems General: Reports: No Symptoms - Patient Data Vitals - Most Recent: Last Vital Signs Temp 97.9 F 08/11/19 04:00 Pulse 101 H 08/11/19 04:00 Resp 17 08/11/19 04:00 BP 161/88 H 08/11/19 04:00 Pulse Ox 97 08/11/19 04:00 Weight - Most Recent: 227 lb 4.8 oz I&O - Last 24 Hours: Intake & Output 08/10/19 08/11/19 08/11/19 22:59 06:59 14:59 Intake Total 1358 1239 Output Total 1650 1150 Balance -292 89 Lab Results Last 24 Hrs: Laboratory Results - last 24 hr 08/11/19 08/11/19 Range/Units 05:58 05:58 WBC 11.53 H (4.0-11.0) K/uL RBC 4.15 L (4.30-5.90) M/uL Hgb 9.6 L (12.0-16.0) g/dL Hct 30.9 L (36.0-46.0) % MCV 74.5 L (80.0-98.0) fL MCH 23.1 L (27.0-32.0) pg MCHC 31.1 (31.0-37.0) g/dL RDW Std Deviation 44.8 (28.0-62.0) fl RDW Coeff of [place]ida 16 H (11.0-15.0) % Plt Count 482 H (150-400) K/uL MPV 8.70 (7.40-12.00) fL Neut % (Auto) 66.5 (48.0-80.0) % Lymph % (Auto) 22.2 (16.0-40.0) % [place] % (Auto) 7.0 (0.0-15.0) % Eos % (Auto) 4.0 (0.0-7.0) % Baso % (Auto) 0.3 (0.0-1.5) % Neut # (Auto) 7.7 H (1.4-5.7) K/uL Lymph # (Auto) 2.6 H (0.6-2.4) K/uL [place] # (Auto) 0.8 (0.0-0.8) K/uL Eos # (Auto) 0.5 (0.0-0.7) K/uL Baso # (Auto) 0.0 (0.0-0.1) K/uL Nucleated RBC % 0.0 /100WBC Nucleated RBCs # 0 K/uL Sodium 143 (136-145) mmol/L Potassium 3.1 L (3.5-5.1) mmol/L Chloride 104 (98-107) mmol/L Carbon Dioxide 28.5 (21.0-32.0) mmol/L BUN 11 (7.0-18.0) mg/dL Creatinine 0.8 (0.6-1.0) mg/dL Est Cr Clr Drug Dosing 75.78 mL/min Estimated GFR (MDRD) > 60.0 ml/min Glucose 110 H (74-106) mg/dL Calcium 8.6 (8.5-10.1) mg/dL Total Bilirubin 0.3 (0.2-1.0) mg/dL AST 18 (15-37) IU/L ALT 22 (14-63) IU/L Alkaline Phosphatase 130 H (46-116) U/L Total Protein 7.0 (6.4-8.2) g/dL Albumin 3.1 L (3.4-5.0) g/dL Globulin 3.9 (2.6-4.0) g/dL Albumin/Globulin Ratio 0.8 L (0.9-1.6) Amylase 17 L (25-115) U/L Lipase 53 L (73-393) U/L Med Orders - Current: Current Medications Hydrocodone Bitart/Acetaminophen ([place] 325-10 Mg) 1 tab PO Q6H PRN PRN Reason: PAIN Last Admin: 08/11/19 03:45 Dose: 1 tab Cholecalciferol (Vitamin D3) 25 mcg PO DAILY [facility] Last Admin: 08/10/19 08:56 Dose: 25 mcg Cyanocobalamin (Vitamin B12) 1,000 mcg PO DAILY ART Last Admin: 08/10/19 08:56 Dose: 1,000 mcg Gabapentin (Neurontin) 1,600 mg PO BEDTIME ART Last Admin: 08/10/19 20:50 Dose: 800 mg Gabapentin (Neurontin) 200 mg PO BEDTIME [facility] Last Admin: 08/10/19 20:50 Dose: 200 mg Hydroxyzine Pamoate (Vistaril) 25 mg PO BID PRN PRN Reason: Anxiety Last Admin: 08/10/19 21:39 Dose: 25 mg Lactated Ringer's (Ringers, Lactated) 1,000 mls @ 125 mls/hr IV ASDIRECTED [facility] Last Admin: 08/11/19 10:08 Dose: 125 mls/hr Ketorolac Tromethamine (Toradol) 30 mg IVPUSH Q6H PRN PRN Reason: PAIN Last Admin: 08/11/19 07:52 Dose: 30 mg Metoclopramide HCl (Reglan) 10 mg IV Q6H [facility] Last Admin: 08/11/19 10:10 Dose: 10 mg Nicotine (Habitrol) 21 mg TRDERM DAILY [facility] Stop: 08/16/19 09:00 Last Admin: 08/11/19 10:09 Dose: 21 mg Omeprazole (Omeprazole) 20 mg PO ACBREAKFAST [facility] Last Admin: 08/10/19 06:54 Dose: 20 mg Ondansetron HCl (Zofran) 4 mg IVPUSH Q8H PRN PRN Reason: Nausea/Vomiting Last Admin: 08/09/19 19:42 Dose: 4 mg Rizatriptan Benzoate ([Rizatriptan] 10 Mg) 0 each PO DAILY PRN PRN Reason: Headache Desvenlafaxine [ Desvenlafaxine Er] 100 Mg 0 each PO BEDTIME [facility] Last Admin: 08/10/19 21:41 Dose: Not Given Tizanidine HCl (Zanaflex) 4 mg PO BID PRN PRN Reason: muscle spasms Last Admin: 08/09/19 21:10 Dose: 4 mg Trazodone HCl (Trazodone Hcl) 100 mg PO BEDTIME PRN PRN Reason: Insomnia Discontinued Medications Hydrocodone Bitart/Acetaminophen ([place] 325-10 Mg) 1 tab PO Q8H PRN PRN Reason: PAIN Benzocaine (Hurricaine One 20%) 1 each MUCMEM ONETIME ONE Stop: 08/09/19 17:35 Last Admin: 08/09/19 18:46 Dose: 1 each Diatrizoate Meglum/Diatrizoate Sod (Gastrografin 37%) 30 ml PO ONETIME ONE Stop: 08/09/19 21:31 Last Admin: 08/09/19 23:02 Dose: 30 ml Hydromorphone HCl (Dilaudid) 2 mg IVPUSH ONETIME ONE Stop: 08/09/19 12:40 Last Admin: 08/09/19 12:44 Dose: 2 mg Sodium Chloride (Normal Saline) 1,000 mls @ 999 mls/hr IV .Bolus ONE Stop: 08/09/19 08:17 Last Admin: 08/09/19 08:06 Dose: 999 mls/hr Iopamidol (Isovue-370 (76%)) 100 ml IVPUSH ONETIME STA Stop: 08/09/19 10:34 Last Admin: 08/09/19 10:34 Dose: 100 ml Lidocaine HCl (Xylocaine 2% Jelly) 1 ml MUCMEM ONETIME ONE Stop: 08/09/19 17:34 Last Admin: 08/09/19 18:46 Dose: 1 ml Lidocaine HCl (Xylocaine 2% Viscous) 15 ml PO ONETIME ONE Stop: 08/10/19 01:00 Last Admin: 08/10/19 01:18 Dose: 15 ml Morphine Sulfate (Morphine) 4 mg IVPUSH ONETIME ONE Stop: 08/09/19 09:16 Last Admin: 08/09/19 09:50 Dose: 4 mg Morphine Sulfate (Morphine) 3 mg IVPUSH ONETIME ONE Stop: 08/09/19 12:29 Last Admin: 08/09/19 12:43 Dose: Not Given Ondansetron HCl (Zofran) 4 mg IVPUSH ONETIME ONE Stop: 08/09/19 07:18 Last Admin: 08/09/19 08:07 Dose: 4 mg Ondansetron HCl (Zofran) 4 mg IVPUSH ONETIME ONE Stop: 08/09/19 09:08 Last Admin: 08/09/19 09:12 Dose: 4 mg Desvenlafaxine [ Desvenlafaxine Er] 100 Mg 100 each PO BEDTIME ART Last Admin: 08/10/19 10:46 Dose: Not Given - Exam General: Alert, Oriented GI/Abdominal Exam: Normal Bowel Sounds, No Distention (wound cdi, no erythema/ expressible materials) - Problem List Review Problem List Initiated/Reviewed/Updated: Yes - My Orders Last 24 Hours: Active Orders 24 hr Category Date Time Status Communication Order [RC] ROUTINE Care 08/11/19 09:12 Active Patient's Own Medication [Ptom] Med 08/10/19 21:00 Active 0 each PO BEDTIME Medication Orders Hydrocodone Bitart/Acetaminophen ([place] 325-10 Mg) 1 tab PO Q6H PRN PRN Reason: PAIN Last Admin: 08/11/19 03:45 Dose: 1 tab Admin: 08/10/19 20:51 Dose: 1 tab Admin: 08/10/19 03:53 Dose: 1 tab Admin: 08/09/19 19:42 Dose: 1 tab Cholecalciferol (Vitamin D3) 25 mcg PO DAILY [facility] Last Admin: 08/10/19 08:56 Dose: 25 mcg Cyanocobalamin (Vitamin B12) 1,000 mcg PO DAILY [facility] Last Admin: 08/10/19 08:56 Dose: 1,000 mcg Gabapentin (Neurontin) 1,600 mg PO BEDTIME [facility] Last Admin: 08/10/19 20:50 Dose: 800 mg Admin: 08/09/19 22:23 Dose: Not Given Gabapentin (Neurontin) 200 mg PO BEDTIME ART Last Admin: 08/10/19 20:50 Dose: 200 mg Admin: 08/09/19 22:23 Dose: Not Given Hydroxyzine Pamoate (Vistaril) 25 mg PO BID PRN PRN Reason: Anxiety Last Admin: 08/10/19 21:39 Dose: 25 mg Admin: 08/10/19 13:28 Dose: 25 mg Lactated Ringer's (Ringers, Lactated) 1,000 mls @ 125 mls/hr IV ASDIRECTED [facility] Last Admin: 08/11/19 10:08 Dose: 125 mls/hr Infusion: 08/11/19 09:12 Dose: 125 mls/hr Admin: 08/11/19 01:12 Dose: 125 mls/hr Infusion: 08/11/19 00:58 Dose: 125 mls/hr Admin: 08/10/19 16:58 Dose: 125 mls/hr Infusion: 08/10/19 16:58 Dose: 125 mls/hr Admin: 08/10/19 09:06 Dose: 125 mls/hr Infusion: 08/10/19 07:29 Dose: 125 mls/hr Admin: 08/09/19 23:29 Dose: 125 mls/hr Infusion: 08/09/19 23:10 Dose: 125 mls/hr Admin: 08/09/19 15:10 Dose: 125 mls/hr Ketorolac Tromethamine (Toradol) 30 mg IVPUSH Q6H PRN PRN Reason: PAIN Last Admin: 08/11/19 07:52 Dose: 30 mg Admin: 08/10/19 23:05 Dose: 30 mg Admin: 08/10/19 14:52 Dose: 30 mg Admin: 08/10/19 08:56 Dose: 30 mg Admin: 08/10/19 01:36 Dose: 30 mg Admin: 08/09/19 17:02 Dose: 30 mg Metoclopramide HCl (Reglan) 10 mg IV Q6H [facility] Last Admin: 08/11/19 10:10 Dose: 10 mg Admin: 08/11/19 05:12 Dose: 10 mg Admin: 08/10/19 23:10 Dose: 10 mg Admin: 08/10/19 16:17 Dose: 10 mg Admin: 08/10/19 11:39 Dose: 10 mg Admin: 08/10/19 06:05 Dose: 10 mg Admin: 08/09/19 23:24 Dose: 10 mg Admin: 08/09/19 17:02 Dose: 10 mg Nicotine (Habitrol) 21 mg TRDERM DAILY [facility] Stop: 08/16/19 09:00 Last Admin: 08/11/19 10:09 Dose: 21 mg Admin: 08/10/19 09:01 Dose: 21 mg Admin: 08/09/19 17:11 Dose: 21 mg Omeprazole (Omeprazole) 20 mg PO ACBREAKFAST [facility] Last Admin: 08/10/19 06:54 Dose: 20 mg Ondansetron HCl (Zofran) 4 mg IVPUSH Q8H PRN PRN Reason: Nausea/Vomiting Last Admin: 08/09/19 19:42 Dose: 4 mg Rizatriptan Benzoate ([Rizatriptan] 10 Mg) 0 each PO DAILY PRN PRN Reason: Headache Desvenlafaxine [ Desvenlafaxine Er] 100 Mg 0 each PO BEDTIME [facility] Last Admin: 08/10/19 21:41 Dose: Not Given Tizanidine HCl (Zanaflex) 4 mg PO BID PRN PRN Reason: muscle spasms Last Admin: 08/09/19 21:10 Dose: 4 mg Trazodone HCl (Trazodone Hcl) 100 mg PO BEDTIME PRN PRN Reason: Insomnia - Assessment Assessment (Free Text/Narrative):: Resolving postop ileus, clamp ngt trial X 3 hours, if miky, dc ngt to full liquid , if miky, pt home on full liquid X 2 more days; fu w me 1 - 2 wks - Plan Plan (Free Text/Narrative):: Resolving postop ileus, clamp ngt trial X 3 hours, if miky, dc ngt to full liquid , if miky, pt home on full liquid X 2 more days; fu w me 1 - 2 wks
[2019-08-11] MEDS: hydrOXYzine Pamoate 25 MG Cap PO PRN (11:36)
[2019-08-11 14:33] VITALS: BP 161/86; PULSE 87
[2019-08-11] MEDS: Cholecalciferol (Vitamin D3) 25 MCG Tab PO SCH ×2 (14:55→15:15)
[2019-08-11] MEDS: Omeprazole 20 MG Cap.CR PO SCH ×2 (14:55→15:11)
[2019-08-11] MEDS: Cyanocobalamin (Vitamin B12) 500 MCG Tab PO SCH (14:55)
--- NOTE | 2019-08-11 15:06 | PCM.DCSUM1 ---
Discharge Summary - Hospital Course Free Text/Narrative:: pls refer to admission h/p for details; in summary, pt 1 wk s/p NIXON, and noted increase in abd pain, n/v, and the next day, seeked med attention at ED, and CT noted for slight small bowel dilation, and was admitted for observation Diagnosis: Stroke: No - Discharge Data Discharge Date: 08/11/19 Discharge Disposition: Home, Self-Care 01 Condition: Stable - Referral to Home Health Date of Face to Face Encounter: 08/11/19 Primary Care Physician: Atilio Ahumada MD - Patient Summary/Data Hospital Course: pt was admitted to med surg floor, npo, iv fluid, and resume home med; on first night, pt complainted increase in pain, soni included lactic acid, repeat ct w gastrograffin, ekg, blood work; and was noted to be wnl, and CT noted for no change from 12 hrs again; but pt had emisis, inserted ngt, and encourage ambulation in becker, and in 2 days, pt had BM, pain resolved, and miky ngt clamp trial, put on full liquid diet, miky well, and was dc home - Patient Instructions Diet: Full Liquid Diet Activity: No Lifting Over 25 Pounds, No Strenuous Activities Driving: Do Not Drive Showering/Bathing: May Shower Wound/Incision Care: Keep Operative Site/Wound Site Clean and Dry Notify Provider of: Fever, Drainage, Nausea and/or Vomiting - Discharge Plan Home Medications: Home Meds Gabapentin [Neurontin] 1,800 mg PO BEDTIME 10/01/17 [History] Hydrocodone/Acetaminophen [Hydrocodon-Acetaminophn 10-325] 10 - 325 mg PO QID PRN 10/01/17 [History] traZODone 100 mg PO BEDTIME PRN 10/01/17 [History] Omeprazole 20 mg PO ACBREAKFAST 03/18/19 [History] Cholecalciferol (Vitamin D3) [Vitamin D3] 1,000 unit PO DAILY 08/09/19 [History] Cyanocobalamin (Vitamin B-12) [Vitamin B-12] 1,000 mcg PO DAILY 08/09/19 [ History] Desvenlafaxine [Desvenlafaxine ER] 100 mg PO BEDTIME 08/09/19 [History] Ibuprofen [Advil] 600 mg PO Q6H PRN 08/09/19 [History] Ondansetron [Zofran ODT] 4 mg PO Q6H PRN 08/09/19 [History] Rizatriptan Benzoate [Rizatriptan] 10 mg PO DAILY PRN MDD MR x 1 tablet [History] hydrOXYzine pamoate [Hydroxyzine Pamoate] 25 mg PO BID PRN 08/09/19 [History] hydrOXYzine pamoate [Hydroxyzine Pamoate] 50 - 100 mg PO BEDTIME PRN 08/09/19 [ History] tiZANidine [Zanaflex] 4 mg PO BID PRN 08/09/19 [History] Referrals: Clint Harvey MD [Physician] - Ivis Armendariz MD [Ordering Only Provider] - 08/17/19 9:45 am (please arrive 15 min early for appointment . please bring ID and insurance card. ) - Discharge Summary/Plan Comment DC Time >30 min.: Yes - General Info Functional Status: Reports: Pain Controlled - Review of Systems Genitourinary: Reports: No Symptoms - Patient Data Vitals - Most Recent: Last Vital Signs Temp 97.8 F 08/11/19 12:00 Pulse 87 08/11/19 12:00 Resp 16 08/11/19 12:00 BP 161/86 H 08/11/19 12:00 Pulse Ox 96 08/11/19 12:00 Weight - Most Recent: 227 lb 4.8 oz I&O - Last 24 hours: Intake & Output 08/11/19 08/11/19 08/11/19 06:59 14:59 22:59 Intake Total 1239 Output Total 1150 Balance 89 Lab Results - Last 24 hrs: Laboratory Results - last 24 hr 08/11/19 08/11/19 Range/Units 05:58 05:58 WBC 11.53 H (4.0-11.0) K/uL RBC 4.15 L (4.30-5.90) M/uL Hgb 9.6 L (12.0-16.0) g/dL Hct 30.9 L (36.0-46.0) % MCV 74.5 L (80.0-98.0) fL MCH 23.1 L (27.0-32.0) pg MCHC 31.1 (31.0-37.0) g/dL RDW Std Deviation 44.8 (28.0-62.0) fl RDW Coeff of Aida 16 H (11.0-15.0) % Plt Count 482 H (150-400) K/uL MPV 8.70 (7.40-12.00) fL Neut % (Auto) 66.5 (48.0-80.0) % Lymph % (Auto) 22.2 (16.0-40.0) % [place] % (Auto) 7.0 (0.0-15.0) % Eos % (Auto) 4.0 (0.0-7.0) % Baso % (Auto) 0.3 (0.0-1.5) % Neut # (Auto) 7.7 H (1.4-5.7) K/uL Lymph # (Auto) 2.6 H (0.6-2.4) K/uL [place] # (Auto) 0.8 (0.0-0.8) K/uL Eos # (Auto) 0.5 (0.0-0.7) K/uL Baso # (Auto) 0.0 (0.0-0.1) K/uL Nucleated RBC % 0.0 /100WBC Nucleated RBCs # 0 K/uL Sodium 143 (136-145) mmol/L Potassium 3.1 L (3.5-5.1) mmol/L Chloride 104 (98-107) mmol/L Carbon Dioxide 28.5 (21.0-32.0) mmol/L BUN 11 (7.0-18.0) mg/dL Creatinine 0.8 (0.6-1.0) mg/dL Est Cr Clr Drug Dosing 75.78 mL/min Estimated GFR (MDRD) > 60.0 ml/min Glucose 110 H (74-106) mg/dL Calcium 8.6 (8.5-10.1) mg/dL Total Bilirubin 0.3 (0.2-1.0) mg/dL AST 18 (15-37) IU/L ALT 22 (14-63) IU/L Alkaline Phosphatase 130 H (46-116) U/L Total Protein 7.0 (6.4-8.2) g/dL Albumin 3.1 L (3.4-5.0) g/dL Globulin 3.9 (2.6-4.0) g/dL Albumin/Globulin Ratio 0.8 L (0.9-1.6) Amylase 17 L (25-115) U/L Lipase 53 L (73-393) U/L Med Orders - Current: Current Medications Hydrocodone Bitart/Acetaminophen ([place] 325-10 Mg) 1 tab PO Q6H PRN PRN Reason: PAIN Last Admin: 08/11/19 03:45 Dose: 1 tab Cholecalciferol (Vitamin D3) 25 mcg PO DAILY [facility] Last Admin: 08/10/19 08:56 Dose: 25 mcg Cyanocobalamin (Vitamin B12) 1,000 mcg PO DAILY [facility] Last Admin: 08/10/19 08:56 Dose: 1,000 mcg Gabapentin (Neurontin) 1,600 mg PO BEDTIME [facility] Last Admin: 08/10/19 20:50 Dose: 800 mg Gabapentin (Neurontin) 200 mg PO BEDTIME [facility] Last Admin: 08/10/19 20:50 Dose: 200 mg Hydroxyzine Pamoate (Vistaril) 25 mg PO BID PRN PRN Reason: Anxiety Last Admin: 08/11/19 11:36 Dose: 25 mg Lactated Ringer's (Ringers, Lactated) 1,000 mls @ 125 mls/hr IV ASDIRECTED [facility] Last Admin: 08/11/19 10:08 Dose: 125 mls/hr Ketorolac Tromethamine (Toradol) 30 mg IVPUSH Q6H PRN PRN Reason: PAIN Last Admin: 08/11/19 07:52 Dose: 30 mg Metoclopramide HCl (Reglan) 10 mg IV Q6H [facility] Last Admin: 08/11/19 10:10 Dose: 10 mg Nicotine (Habitrol) 21 mg TRDERM DAILY [facility] Stop: 08/16/19 09:00 Last Admin: 08/11/19 10:09 Dose: 21 mg Omeprazole (Omeprazole) 20 mg PO ACBREAKFAST [facility] Last Admin: 08/10/19 06:54 Dose: 20 mg Ondansetron HCl (Zofran) 4 mg IVPUSH Q8H PRN PRN Reason: Nausea/Vomiting Last Admin: 08/09/19 19:42 Dose: 4 mg Rizatriptan Benzoate ([Rizatriptan] 10 Mg) 0 each PO DAILY PRN PRN Reason: Headache Desvenlafaxine [ Desvenlafaxine Er] 100 Mg 0 each PO BEDTIME ART Last Admin: 08/10/19 21:41 Dose: Not Given Tizanidine HCl (Zanaflex) 4 mg PO BID PRN PRN Reason: muscle spasms Last Admin: 08/09/19 21:10 Dose: 4 mg Trazodone HCl (Trazodone Hcl) 100 mg PO BEDTIME PRN PRN Reason: Insomnia Discontinued Medications Hydrocodone Bitart/Acetaminophen ([place] 325-10 Mg) 1 tab PO Q8H PRN PRN Reason: PAIN Benzocaine (Hurricaine One 20%) 1 each MUCMEM ONETIME ONE Stop: 08/09/19 17:35 Last Admin: 08/09/19 18:46 Dose: 1 each Diatrizoate Meglum/Diatrizoate Sod (Gastrografin 37%) 30 ml PO ONETIME ONE Stop: 08/09/19 21:31 Last Admin: 08/09/19 23:02 Dose: 30 ml Hydromorphone HCl (Dilaudid) 2 mg IVPUSH ONETIME ONE Stop: 08/09/19 12:40 Last Admin: 08/09/19 12:44 Dose: 2 mg Sodium Chloride (Normal Saline) 1,000 mls @ 999 mls/hr IV .Bolus ONE Stop: 08/09/19 08:17 Last Admin: 08/09/19 08:06 Dose: 999 mls/hr Iopamidol (Isovue-370 (76%)) 100 ml IVPUSH ONETIME STA Stop: 08/09/19 10:34 Last Admin: 08/09/19 10:34 Dose: 100 ml Lidocaine HCl (Xylocaine 2% Jelly) 1 ml MUCMEM ONETIME ONE Stop: 08/09/19 17:34 Last Admin: 08/09/19 18:46 Dose: 1 ml Lidocaine HCl (Xylocaine 2% Viscous) 15 ml PO ONETIME ONE Stop: 08/10/19 01:00 Last Admin: 08/10/19 01:18 Dose: 15 ml Morphine Sulfate (Morphine) 4 mg IVPUSH ONETIME ONE Stop: 08/09/19 09:16 Last Admin: 08/09/19 09:50 Dose: 4 mg Morphine Sulfate (Morphine) 3 mg IVPUSH ONETIME ONE Stop: 08/09/19 12:29 Last Admin: 08/09/19 12:43 Dose: Not Given Ondansetron HCl (Zofran) 4 mg IVPUSH ONETIME ONE Stop: 08/09/19 07:18 Last Admin: 08/09/19 08:07 Dose: 4 mg Ondansetron HCl (Zofran) 4 mg IVPUSH ONETIME ONE Stop: 08/09/19 09:08 Last Admin: 08/09/19 09:12 Dose: 4 mg Desvenlafaxine [ Desvenlafaxine Er] 100 Mg 100 each PO BEDTIME ART Last Admin: 08/10/19 10:46 Dose: Not Given - Exam General: Reports: Alert, Oriented GI/Abdominal Exam: Soft, Non-Tender, No Distention (wound cdi)
== END 2019-08-11 16:15 | disposition home or self-care (01) | DRG 247 ==
LOC: MW.ED 07:07 → MW.MS 13:14 → OBSVTOIN 08-10 09:29 → MW.MS 08-10 09:30
PROVIDERS: ADMIT Surgery; ATTEND Surgery
PROC: 0D9670Z Drainage of Stomach with Drainage Device, Via Natural or Artificial Opening (ICD-10-PCS; principal; 2019-08-10)
DX: K56.7 Ileus, unspecified (principal); I10 Essential (primary) hypertension; M79.7 Fibromyalgia; G43.909 Migraine, unspecified, not intractable, without status migrainosus; F41.9 Anxiety disorder, unspecified; F32.9 Major depressive disorder, single episode, unspecified; E66.9 Obesity, unspecified; F17.210 Nicotine dependence, cigarettes, uncomplicated; Z90.710 Acquired absence of both cervix and uterus; Z79.899 Other long term (current) drug therapy; Z87.440 Personal history of urinary (tract) infections; Z90.49 Acquired absence of other specified parts of digestive tract; Z68.41 Body mass index [BMI] 40.0-44.9, adult
CPT/HCPCS: 36415; 71045; 71045-26; 74176; 74176-26; 74177; 74177-26; 80053; 81001; 82150; 83605; 83690; 85025; 93005; 96361; 96374; 96375; 96376; 99284; 99285-25; A9270-GY; G0378; J1170; J1885; J2270; J2405; J2765; J7030; J7120; Q9963; Q9967

== ENCOUNTER 2019-11-19 07:59 | Emergency (ER) | payer BC ==
[2019-11-19 08:20] VITALS: BP 141/91; PULSE 78
[2019-11-19] MEDS ORDERED: Sodium Chloride 0.9% 1,000 ML IV ONE (08:20)
--- NOTE | 2019-11-19 08:32 | EDM.PDOC ---
ED HPI GENERAL MEDICAL PROBLEM - General Chief Complaint: Abdominal Pain Stated Complaint: PAIN UPPER AB AROUND THE BACK Time Seen by Provider: 11/19/19 08:00 Source of Information: Reports: Patient History Limitations: Reports: No Limitations - History of Present Illness INITIAL COMMENTS - FREE TEXT/NARRATIVE: HISTORY OF PRESENT ILLNESS: Patient is a 44-year-old female presents with abdominal pain since 7 PM last night. Pain is 8 out of 10, described as cramping and burning, waxing and waning in nature diffuse, wrapping around to her back. States her last bowel movement was last night and it was normal. Denies any diarrhea or constipation. No melena or hematochezia. Denies any urinary symptoms. Has nausea but denies any emesis. No chest pain or dyspnea. No fevers or chills. No rash or neck stiffness. Patient has history of multiple abdominal surgeries including hysterectomy, dehiscence of adhesions, bowel perforation and repair. History of bowel obstruction in the past. REVIEW OF SYSTEMS: Other than the symptoms associated with the present events, the following is reported with regard to recent health: General: (-) fever. HENT: (-) congestion. Respiratory: (-) cough. Cardiovascular: (-) chest pain. GI: (+) abdominal pain. : (-) urinary complaints. Musculoskeletal: (-) other aches or pains. Endocrine: (-) generalized weakness. Neurological: (-) localized weakness. Skin: (-) rash PAST MEDICAL HISTORY: reviewed as per nursing notes SOCIAL HISTORY: reviewed as per nursing notes, MEDICATIONS: Per nurse's note ALLERGIES: Per nurse's note, reviewed by me PHYSICAL EXAMINATION: GENERALIZED APPEARANCE: well developed, well nourished in mild distress VITAL SIGNS: Per nurse's note, reviewed by me SKIN: Warm, dry; (-) cyanosis; (-) rash. HEAD: (-) scalp swelling, (-) tenderness. EYES: (-) conjunctival pallor, (-) scleral icterus. ENMT: (-) stridor; mucous membranes moist. NECK: (-) tenderness, (-) stiffness, CHEST AND RESPIRATORY: (-) rales, (-) rhonchi, (-) wheezes; breath sounds equal bilaterally. HEART AND CARDIOVASCULAR: (-) irregularity; (-) murmur, (-) gallop. ABDOMEN AND GI: Soft; (+)diffuse mild tenderness,maximal in LLQ and midepigastrium. old scars. No CVAT (-) guarding, (-) rebound, (-) palpable masses, EXTREMITIES: (-) deformity, (-) edema. NEURO AND PSYCH: Alert. Cranial nerves grossly intact; strength symmetric. gait steady DIAGNOSTICS: Labs ordered and reviewed CT abd/pelvis: as read by radiologist, report reviewed by myself EMERGENCY DEPARTMENT COURSE AND TREATMENT: Patient's condition remained stable during Emergency Department evaluation. The patient presents to the ED with abdominal pain. After history, physical exam, and diagnostic evaluation, the etiology for the pain is unclear. Laboratory data was ordered. On serial exams , there are no peritoneal signs. Abdomen is soft without guarding or rebound. I think there is a very low probability of significant abdominal pathology based on today's evaluation. The patient is advised to have a followup tomorrow for a recheck and repeat abdominal exam. I also advised to return to the emergency department immediately for significant pain, fevers, not tolerating oral food or fluid, or new complaints. PLAN AND FOLLOW-UP: Patient received written and verbal instructions regarding this condition. Return to ED immediately with any new or worsening symptoms. Follow up to be arranged by patient with pcp in 1 days for further evaluation. Given discharge precautions. Patient expressed verbal understanding. upper abd pain Pain Score (Numeric/FACES): 8 - Related Data Allergies Allergy/AdvReac Type Severity Reaction Status Date / Time No Known Allergies Allergy Verified 11/19/19 08:13 Home Meds: Home Meds Gabapentin [Neurontin] 1,800 mg PO BEDTIME 10/01/17 [History] Hydrocodone/Acetaminophen [Hydrocodon-Acetaminophn 10-325] 10 - 325 mg PO QID PRN 10/01/17 [History] traZODone 100 mg PO BEDTIME PRN 10/01/17 [History] Omeprazole 20 mg PO ACBREAKFAST 03/18/19 [History] Cholecalciferol (Vitamin D3) [Vitamin D3] 1,000 unit PO DAILY 08/09/19 [History] Cyanocobalamin (Vitamin B-12) [Vitamin B-12] 1,000 mcg PO DAILY 08/09/19 [ History] Desvenlafaxine [Desvenlafaxine ER] 100 mg PO BEDTIME 08/09/19 [History] Ibuprofen [Advil] 600 mg PO Q6H PRN 08/09/19 [History] Ondansetron [Zofran ODT] 4 mg PO Q6H PRN 08/09/19 [History] Rizatriptan Benzoate [Rizatriptan] 10 mg PO DAILY PRN MDD MR x 1 tablet [History] hydrOXYzine pamoate [Hydroxyzine Pamoate] 25 mg PO BID PRN 08/09/19 [History] hydrOXYzine pamoate [Hydroxyzine Pamoate] 50 - 100 mg PO BEDTIME PRN 08/09/19 [ History] tiZANidine [Zanaflex] 4 mg PO BID PRN 08/09/19 [History] Estradiol [Stella] 1 patch TRDERM WEEKLY 11/19/19 [History] Past Medical History HEENT History: Reports: Other (See Below), Sinusitis Other HEENT History: 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 Cardiovascular History: Reports: None Respiratory History: Reports: None Gastrointestinal History: Reports: Bowel Obstruction, Cholelithiasis Genitourinary History: Reports: UTI, Recurrent 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 CUSTODIAN History: Reports: Other (See Below) Other BUILDING CUSTODIAN History: infertility Musculoskeletal History: Reports: Fibromyalgia, Other (See Below) Other Musculoskeletal History: myofacial syndrome, Neurological History: Reports: Migraines Other Neuro History: Headaches Psychiatric History: Reports: Anxiety, Depression Endocrine/Metabolic History: Reports: Obesity/BMI 30+ Hematologic History: Reports: Blood Transfusion(s) Immunologic History: Reports: Other (See Below) Other Immunologic History: 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 Oncologic (Cancer) History: Reports: None Dermatologic History: Reports: None - Infectious Disease History Infectious Disease History: Reports: None - Past Surgical History Head Surgeries/Procedures: Reports: None Cardiovascular Surgical History: Reports: None Respiratory Surgical History: Reports: None GI Surgical History: Reports: Cholecystectomy, Small Bowel Female Surgical History: Reports: Hysterectomy Endocrine Surgical History: Reports: None Neurological Surgical History: Reports: None Other Musculoskeletal Surgeries/Procedures:: ulna entrapment surgery bilateral Oncologic Surgical History: Reports: None Dermatological Surgical History: Reports: None Social & Family History - Family History Family Medical History: Noncontributory - Tobacco Use Smoking Status *Q: Current Every Day Smoker Years of Tobacco use: 22 Packs/Tins Daily: 1 - Caffeine Use Caffeine Use: Reports: Soda Caffeine Use Comment: daily - Recreational Drug Use Recreational Drug Use: No ED ROS GENERAL - Review of Systems Review Of Systems: See Below (see dictation) ED EXAM, GENERAL - Physical Exam Exam: See Below (see dictation) Course - Vital Signs Last Recorded V/S: Last Vital Signs Temp 96.5 F L 11/19/19 08:16 Pulse 78 11/19/19 08:16 Resp 18 11/19/19 08:16 BP 141/91 H 11/19/19 08:16 Pulse Ox 96 11/19/19 08:16 - Orders/Labs/Meds Labs: Laboratory Tests 11/19/19 11/19/19 11/19/19 Range/Units 08:45 08:45 08:49 WBC 10.78 (4.0-11.0) K/uL RBC 5.39 (4.30-5.90) M/uL Hgb 12.9 (12.0-16.0) g/dL Hct 40.7 (36.0-46.0) % MCV 75.5 L (80.0-98.0) fL MCH 23.9 L (27.0-32.0) pg MCHC 31.7 (31.0-37.0) g/dL RDW Std Deviation 49.1 (28.0-62.0) fl RDW Coeff of Aida 18 H (11.0-15.0) % Plt Count 406 H (150-400) K/uL MPV 9.30 (7.40-12.00) fL Neut % (Auto) 69.5 (48.0-80.0) % Lymph % (Auto) 22.1 (16.0-40.0) % [place] % (Auto) 5.5 (0.0-15.0) % Eos % (Auto) 2.7 (0.0-7.0) % Baso % (Auto) 0.2 (0.0-1.5) % Neut # (Auto) 7.5 H (1.4-5.7) K/uL Lymph # (Auto) 2.4 (0.6-2.4) K/uL [place] # (Auto) 0.6 (0.0-0.8) K/uL Eos # (Auto) 0.3 (0.0-0.7) K/uL Baso # (Auto) 0.0 (0.0-0.1) K/uL Nucleated RBC % 0.0 /100WBC Nucleated RBCs # 0 K/uL Sodium 139 (136-145) mmol/L Potassium 4.1 (3.5-5.1) mmol/L Chloride 103 (98-107) mmol/L Carbon Dioxide 23.1 (21.0-32.0) mmol/L BUN 15 (7.0-18.0) mg/dL Creatinine 0.9 (0.6-1.0) mg/dL Est Cr Clr Drug Dosing 67.36 mL/min Estimated GFR (MDRD) > 60.0 ml/min Glucose 109 H (74-106) mg/dL Calcium 9.3 (8.5-10.1) mg/dL Total Bilirubin 0.4 (0.2-1.0) mg/dL AST 25 (15-37) IU/L ALT 43 (14-63) IU/L Alkaline Phosphatase 175 H (46-116) U/L Total Protein 8.0 (6.4-8.2) g/dL Albumin 3.7 (3.4-5.0) g/dL Globulin 4.3 H (2.6-4.0) g/dL Albumin/Globulin Ratio 0.9 (0.9-1.6) Lipase 107 (73-393) U/L Urine Color YELLOW Urine Appearance CLEAR Urine pH 5.5 (5.0-8.0) Ur Specific [place] 1.025 (1.001-1.035) Urine Protein NEGATIVE (NEGATIVE) mg/dL Urine Glucose (UA) NEGATIVE (NEGATIVE) mg/dL Urine Ketones NEGATIVE (NEGATIVE) mg/dL Urine Occult Blood NEGATIVE (NEGATIVE) Urine Nitrite NEGATIVE (NEGATIVE) Urine Bilirubin NEGATIVE (NEGATIVE) Urine Urobilinogen 0.2 (<2.0) EU/dL Ur Leukocyte Esterase NEGATIVE (NEGATIVE) Meds: Medications Discontinued Medications Generic Name Dose Route Start Last Admin Trade Name Freq PRN Reason Stop Dose Admin Sodium Chloride 1,000 mls @ 1,000 mls/hr 11/19/19 08:20 11/19/19 08:44 Normal Saline IV 11/19/19 09:19 1,000 mls/hr .Bolus ONE Administration Iopamidol 100 ml 11/19/19 10:34 11/19/19 10:36 Isovue-300 (61%) IVPUSH 11/19/19 10:35 100 ml ONETIME STA Administration Departure - Departure Time of Disposition: 10:41 Disposition: Home, Self-Care 01 Condition: Good Clinical Impression: Abdominal pain Qualifiers: Abdominal location: upper abdomen, unspecified Qualified Code(s): R10.10 - Upper abdominal pain, unspecified - Discharge Information *PRESCRIPTION DRUG MONITORING PROGRAM REVIEWED*: Not Applicable *COPY OF PRESCRIPTION DRUG MONITORING REPORT IN PATIENT CHANTAL: Not Applicable Instructions: Abdominal Pain, Adult, [id number] Referrals: Atilio Ahumada MD [Primary Care Provider] - 1 Day Forms: ED Department Discharge Additional Instructions: The following information is given to patients seen in the emergency department who are being discharged to home. This information is to outline your options for follow-up care. We provide all patients seen in our emergency department with a follow-up referral. The need for follow-up, as well as the timing and circumstances, are variable depending upon the specifics of your emergency department visit. If you don't have a primary care physician on staff, we will provide you with a referral. We always advise you to contact your personal physician following an emergency department visit to inform them of the circumstance of the visit and for follow-up with them and/or the need for any referrals to a consulting specialist. The emergency department will also refer you to a specialist when appropriate. This referral assures that you have the opportunity for follow-up care with a specialist. All of these measure are taken in an effort to provide you with optimal care, which includes your follow-up. Under all circumstances we always encourage you to contact your private physician who remains a resource for coordinating your care. When calling for follow-up care, please make the office aware that this follow-up is from your recent emergency room visit. If for any reason you are refused follow-up, please contact the [facility] at and asked to speak to the emergency department charge nurse. Sepsis Event Note - Evaluation Sepsis Screening Result: No Definite Risk - Focused Exam Vital Signs: Vital Signs Temp Pulse Resp BP Pulse Ox 11/19/19 08:16 96.5 F L 78 18 141/91 H 96 Date Exam was Performed: 11/19/19 Time Exam was Performed: 11:03
[2019-11-19 09:27] LABS: BLOOD UREA NITROGEN,BUN 15 mg/dL (7.0-18.0); CARBON DIOXIDE,CO2 23.1 mmol/L (21.0-32.0); CHLORIDE,CL 103 mmol/L (98-107); GLUCOSE RANDOM 109 mg/dL (74-106); LIPASE 107 U/L (73-393); POTASSIUM,K 4.1 mmol/L (3.5-5.1); SODIUM,NA 139 mmol/L (136-145)
--- NOTE | 2019-11-19 10:29 | CT ---
CT abdomen and pelvis Technique: Multiple axial sections were obtained from above the dome of the diaphragm inferiorly through the pubic symphysis. Intravenous contrast was utilized. No oral contrast has been given. Comparison: Previous CT abdomen and pelvis study of 08/09/19. Findings: Visualized lung bases show nothing acute. Liver contains no focal parenchymal abnormality. Spleen appears within normal limits. Adrenal glands show no nodule. Pancreas is within normal limits. Surgical clips are seen from prior cholecystectomy. Kidneys show symmetric contrast enhancement without hydronephrosis or mass. Aorta shows no aneurysm. No retroperitoneal adenopathy is seen. No mesenteric abnormalities are seen. No pelvic mass or adenopathy is noted. There is several bowel loops closely related to the anterior abdomen presumably due to scarring from previous surgery. No bowel dilatation is seen on current study. Appendix not visualized with certainty. No free fluid is seen. No inflammatory change is noted. Bone window settings were reviewed which appear within normal limits for the patient's age. Impression: 1. Findings as noted above. 2. Nothing acute is identified. Diagnostic code #2 This report was dictated in MDT
[2019-11-19] MEDS ORDERED: Iopamidol 612 MG/ML 100 ML Bottle IVPUSH STA (10:34)
== END 2019-11-19 10:50 | disposition home or self-care (01) ==
LOC: MW.ED 07:59
DX: R10.10 Upper abdominal pain, unspecified (principal); F41.9 Anxiety disorder, unspecified; F32.9 Major depressive disorder, single episode, unspecified; E66.9 Obesity, unspecified; F17.210 Nicotine dependence, cigarettes, uncomplicated; Z79.899 Other long term (current) drug therapy; Z68.38 Body mass index [BMI] 38.0-38.9, adult
CPT/HCPCS: 36415; 74177; 80053; 81003; 83690; 85025; 96360; 99284; J7030; Q9967

== ENCOUNTER 2022-01-04 21:30 | Emergency (ER) | payer BC ==
[2022-01-04] MEDS ORDERED: Ketorolac 30 MG/ML SDV IM ONE (22:49)
[2022-01-05 01:38] VITALS: BP 123/76; PULSE 76
== END 2022-01-05 00:50 | disposition home or self-care (01) ==
LOC: MW.ED 21:30
DX: S29.012A Strain of muscle and tendon of back wall of thorax, initial encounter (principal); E66.9 Obesity, unspecified; Z68.39 Body mass index [BMI] 39.0-39.9, adult; X50.0XXA Overexertion from strenuous movement or load, initial encounter
CPT/HCPCS: 72128; 72131; 96372; 99283; J1885

== ENCOUNTER 2022-04-26 19:32 | Emergency (ER) | payer BC ==
[2022-04-26 19:57] VITALS: BP 145/73; PULSE 84
== END 2022-04-26 21:31 | disposition home or self-care (01) ==
LOC: MW.ED 19:32
DX: S29.012A Strain of muscle and tendon of back wall of thorax, initial encounter (principal); M62.830 Muscle spasm of back; E66.9 Obesity, unspecified; Z68.37 Body mass index [BMI] 37.0-37.9, adult; X50.0XXA Overexertion from strenuous movement or load, initial encounter
CPT/HCPCS: 81003; 81025; 99283

== ENCOUNTER 2022-05-02 09:51 | Emergency (ER) | payer BC ==
[2022-05-02 10:22] VITALS: BP 136/85; PULSE 75
== END 2022-05-02 11:57 | disposition left against medical advice (07) ==
LOC: MW.ED 09:51
DX: S29.012A Strain of muscle and tendon of back wall of thorax, initial encounter (principal); E66.9 Obesity, unspecified; Z68.37 Body mass index [BMI] 37.0-37.9, adult; X50.0XXA Overexertion from strenuous movement or load, initial encounter
CPT/HCPCS: 99282; 99283

== ENCOUNTER 2022-07-03 19:30 | Emergency (ER) | payer OTHER, BC ==
[2022-07-03 22:30] VITALS: BP 100/58; PULSE 67
[2022-07-03] MEDS ORDERED: Lidocaine 1% 5 ML VIAL INJECT ONE (22:43)
== END 2022-07-03 23:30 | disposition home or self-care (01) ==
LOC: MW.ED 19:30
DX: S61.217A Laceration without foreign body of left little finger without damage to nail, initial encounter (principal); E66.9 Obesity, unspecified; Z68.38 Body mass index [BMI] 38.0-38.9, adult; Z79.899 Other long term (current) drug therapy; Z90.49 Acquired absence of other specified parts of digestive tract; Z90.710 Acquired absence of both cervix and uterus; W23.1XXA Caught, crushed, jammed, or pinched between stationary objects, initial encounter
CPT/HCPCS: 12001; 73140-26-F4; 73140-F4; 99282

== ENCOUNTER 2022-11-29 20:16 | Emergency (ER) | payer BC, OTHER ==
[2022-11-29] MEDS ORDERED: HYDROmorphone 1 MG/ML Syringe IM ONE (22:20)
[2022-11-29 23:48] VITALS: BP 152/97; PULSE 69
== END 2022-11-29 23:20 | disposition home or self-care (01) ==
LOC: MW.ED 20:16
DX: M54.6 Pain in thoracic spine (principal); M25.519 Pain in unspecified shoulder; E66.9 Obesity, unspecified; Z68.36 Body mass index [BMI] 36.0-36.9, adult; Z79.899 Other long term (current) drug therapy
CPT/HCPCS: 71250; 72128; 81025; 96372; 99284; J1170; 99283

== ENCOUNTER 2023-08-25 06:37 | Emergency (ER) | payer BC ==
[2023-08-25] MEDS ORDERED: Famotidine 20 MG/2 ML SDV IVPUSH ONE (06:40)
[2023-08-25] MEDS ORDERED: Ondansetron 4 MG/2 ML SDV IVPUSH ONE ×2 (06:40→09:02)
[2023-08-25] MEDS ORDERED: Sodium Chloride 0.9% 1,000 ML IV ONE (06:40)
[2023-08-25] MEDS ORDERED: HYDROmorphone 2 MG/ML Syringe IVPUSH ONE (06:50)
[2023-08-25 07:10] LABS: BASOPHILS ABSOLUTE AUTO 0.05 K/uL (0.00-0.20); BASOPHILS PERCENT AUTO 0.4 % (0.0-1.0); EOSINOPHILS ABSOLUTE AUTO 0.17 K/uL (0.00-0.45); EOSINOPHILS PERCENT AUTO 1.3 % (0.0-6.0); HEMOGLOBIN 14.3 g/dL (12.0-16.0); IMMATURE GRAN ABSOLUTE AUTO 0.05 K/uL (0.00-0.05); IMMATURE GRAN PERCENT AUTO 0.4 % (0.0-0.4); LYMPHOCYTES ABSOLUTE AUTO 3.38 K/uL (1.00-4.80); LYMPHOCYTES PERCENT AUTO 25.5 % (24.0-44.0); MEAN CORPUSCULAR HEMOGLOBIN 27.4 pg (28.0-32.0); MEAN CORPUSCULAR VOLUME 80.5 fL (83.0-99.0); MONOCYTES ABSOLUTE AUTO 1.08 K/uL (0.00-0.80); MONOCYTES PERCENT AUTO 8.1 % (0.0-8.0); NEUTROPHILS ABSOLUTE AUTO 8.54 K/uL (1.80-7.70); NEUTROPHILS PERCENT AUTO 64.3 % (41.0-71.0); PLATELET COUNT,PLT 348 K/uL (150-400); RED BLOOD CELL COUNT 5.22 M/uL (4.10-5.30); WHITE BLOOD CELL COUNT,WBC 13.27 K/uL (3.9-11.3)
[2023-08-25 07:31] LABS: ALBUMIN 3.9 g/dL (3.4-5.0); BILIRUBIN TOTAL 0.4 mg/dL (0.2-1.0); CARBON DIOXIDE,CO2 28.8 mmol/L (21.0-32.0); CREATININE 1.1 mg/dL (0.6-1.0); EST CRCL DRUG DOSING (CG) 50.54 mL/min; POTASSIUM,K 3.5 mmol/L (3.5-5.1); PROTEIN TOTAL,TP 7.7 g/dL (6.4-8.2)
[2023-08-25 07:35] LABS: CALCIUM 9.2 mg/dL (8.5-10.1)
[2023-08-25 07:43] LABS: MAGNESIUM 3.8 mg/dL (1.8-2.4)
[2023-08-25] MEDS ORDERED: Iopamidol 755 MG/ML 500 ML Multipack Bottle IVPUSH STA (08:33)
[2023-08-25 09:34] LABS: APPEARANCE,URINE CLEAR; BILIRUBIN,URINE NEGATIVE (NEGATIVE); COLOR,URINE YELLOW; GLUCOSE,URINE NEGATIVE (NEGATIVE); KETONES,URINE NEGATIVE (NEGATIVE); LEUKOCYTE ESTERASE,URINE NEGATIVE (NEGATIVE); NITRITE,URINE NEGATIVE (NEGATIVE); OCCULT BLOOD,URINE NEGATIVE (NEGATIVE); PH,URINE 7.5 (5.0-8.0); PROTEIN,URINE NEGATIVE (NEGATIVE); UROBILINOGEN,URINE 0.2 EU/dL (<2.0)
[2023-08-25 09:49] VITALS: BP 150/82; PULSE 81
== END 2023-08-25 09:48 | disposition home or self-care (01) ==
LOC: MW.ED 06:37
DX: K52.9 Noninfective gastroenteritis and colitis, unspecified (principal); E66.9 Obesity, unspecified; Z68.38 Body mass index [BMI] 38.0-38.9, adult; Z90.49 Acquired absence of other specified parts of digestive tract; Z79.899 Other long term (current) drug therapy; Z90.710 Acquired absence of both cervix and uterus
CPT/HCPCS: 36415; 74177; 80053; 81003; 83690; 83735; 84703; 85025; 96361; 96374; 96375; 96376; 99284; J1170; J2405; J3490; J7030; Q9967

== ENCOUNTER 2023-08-27 13:23 | Observation (INO) | payer BC ==
[2023-08-27] MEDS ORDERED: Ondansetron 4 MG/2 ML SDV IVPUSH ONE (13:59)
[2023-08-27] MEDS ORDERED: HYDROmorphone 1 MG/ML Syringe IVPUSH ONE (13:59)
[2023-08-27] MEDS ORDERED: Sodium Chloride 0.9% 1,000 ML IV ONE (14:01)
[2023-08-27 14:05] LABS: BASOPHILS ABSOLUTE AUTO 0.04 K/uL (0.00-0.20); BASOPHILS PERCENT AUTO 0.4 % (0.0-1.0); EOSINOPHILS ABSOLUTE AUTO 0.21 K/uL (0.00-0.45); EOSINOPHILS PERCENT AUTO 2.2 % (0.0-6.0); HEMATOCRIT 42.2 % (37.0-47.0); HEMOGLOBIN 14.2 g/dL (12.0-16.0); IMMATURE GRAN ABSOLUTE AUTO 0.03 K/uL (0.00-0.05); IMMATURE GRAN PERCENT AUTO 0.3 % (0.0-0.4); LYMPHOCYTES ABSOLUTE AUTO 2.65 K/uL (1.00-4.80); LYMPHOCYTES PERCENT AUTO 27.2 % (24.0-44.0); MEAN CORPUSCULAR HEMOGLOBIN 27.6 pg (28.0-32.0); MEAN CORPUSCULAR HGB CONC 33.6 g/dL (32.0-36.0); MEAN CORPUSCULAR VOLUME 81.9 fL (83.0-99.0); MEAN PLATELET VOLUME 9.2 fL (9.4-12.3); MONOCYTES ABSOLUTE AUTO 0.68 K/uL (0.00-0.80); NEUTROPHILS ABSOLUTE AUTO 6.15 K/uL (1.80-7.70); NEUTROPHILS PERCENT AUTO 62.9 % (41.0-71.0); PLATELET COUNT,PLT 342 K/uL (150-400); RED BLOOD CELL COUNT 5.15 M/uL (4.10-5.30); WHITE BLOOD CELL COUNT,WBC 9.76 K/uL (3.9-11.3)
[2023-08-27 14:25] LABS: A/G RATIO 0.9 (0.9-1.6); ALBUMIN 3.6 g/dL (3.4-5.0); BILIRUBIN TOTAL 0.3 mg/dL (0.2-1.0); CALCIUM 9.1 mg/dL (8.5-10.1); CARBON DIOXIDE,CO2 28.7 mmol/L (21.0-32.0); CREATININE 1.4 mg/dL (0.6-1.0); EST CRCL DRUG DOSING (CG) 39.71 mL/min; POTASSIUM,K 4.3 mmol/L (3.5-5.1); PROTEIN TOTAL,TP 7.5 g/dL (6.4-8.2)
[2023-08-27 14:52] LABS: LACTIC ACID 1.5 mmol/L (0.4-2.0)
[2023-08-27] MEDS ORDERED: Iopamidol 755 MG/ML 500 ML Multipack Bottle IVPUSH STA (14:58)
[2023-08-27 17:08] LABS: APPEARANCE,URINE CLEAR; BILIRUBIN,URINE NEGATIVE (NEGATIVE); COLOR,URINE YELLOW; GLUCOSE,URINE 100 mg/dL (NEGATIVE); KETONES,URINE NEGATIVE (NEGATIVE); LEUKOCYTE ESTERASE,URINE NEGATIVE (NEGATIVE); NITRITE,URINE NEGATIVE (NEGATIVE); OCCULT BLOOD,URINE NEGATIVE (NEGATIVE); PH,URINE 5.5 (5.0-8.0); PROTEIN,URINE NEGATIVE (NEGATIVE); UROBILINOGEN,URINE 0.2 EU/dL (<2.0)
[2023-08-27] MEDS ORDERED: Naloxone 0.4 MG/ML SDV IVPUSH PRN (17:26)
[2023-08-27] MEDS ORDERED: Morphine 2 MG/ML SYRINGE IVPUSH PRN (17:26)
[2023-08-27] MEDS ORDERED: Pantoprazole 40 MG in Sodium Chloride 0.9% 10 ML IVPUSH SCH (17:30)
[2023-08-27] MEDS: Sodium Chloride 0.9% 1,000 ML IV SCH (17:50)
[2023-08-27] MEDS: Nicotine 21 MG/24 Hr Patch TRDERM SCH (18:03)
[2023-08-27] MEDS: Ondansetron 4 MG/2 ML SDV IVPUSH PRN (20:10)
[2023-08-27] MEDS: HYDROmorphone 1 MG/ML Syringe IVPUSH PRN (20:10)
[2023-08-28] MEDS: HYDROmorphone 1 MG/ML Syringe IVPUSH PRN (00:08)
[2023-08-28] MEDS: Sodium Chloride 0.9% 1,000 ML IV SCH (01:55)
[2023-08-28] MEDS: Ondansetron 4 MG/2 ML SDV IVPUSH PRN (02:30)
[2023-08-28 05:44] LABS: BASOPHILS ABSOLUTE AUTO 0.03 K/uL (0.00-0.20); BASOPHILS PERCENT AUTO 0.4 % (0.0-1.0); EOSINOPHILS ABSOLUTE AUTO 0.19 K/uL (0.00-0.45); EOSINOPHILS PERCENT AUTO 2.6 % (0.0-6.0); HEMATOCRIT 33.4 % (37.0-47.0); HEMOGLOBIN 11.2 g/dL (12.0-16.0); IMMATURE GRAN ABSOLUTE AUTO 0.02 K/uL (0.00-0.05); IMMATURE GRAN PERCENT AUTO 0.3 % (0.0-0.4); LYMPHOCYTES ABSOLUTE AUTO 2.81 K/uL (1.00-4.80); LYMPHOCYTES PERCENT AUTO 37.8 % (24.0-44.0); MEAN CORPUSCULAR HEMOGLOBIN 27.4 pg (28.0-32.0); MEAN CORPUSCULAR HGB CONC 33.5 g/dL (32.0-36.0); MEAN CORPUSCULAR VOLUME 81.7 fL (83.0-99.0); MONOCYTES ABSOLUTE AUTO 0.49 K/uL (0.00-0.80); MONOCYTES PERCENT AUTO 6.6 % (0.0-8.0); NEUTROPHILS ABSOLUTE AUTO 3.89 K/uL (1.80-7.70); NEUTROPHILS PERCENT AUTO 52.3 % (41.0-71.0); PLATELET COUNT,PLT 243 K/uL (150-400); RED BLOOD CELL COUNT 4.09 M/uL (4.10-5.30); WHITE BLOOD CELL COUNT,WBC 7.43 K/uL (3.9-11.3)
[2023-08-28 06:10] LABS: A/G RATIO 0.9 (0.9-1.6); ALBUMIN 2.8 g/dL (3.4-5.0); BILIRUBIN TOTAL 0.3 mg/dL (0.2-1.0); CALCIUM 8.2 mg/dL (8.5-10.1); CARBON DIOXIDE,CO2 27.4 mmol/L (21.0-32.0); CREATININE 0.9 mg/dL (0.6-1.0); EST CRCL DRUG DOSING (CG) 61.77 mL/min; POTASSIUM,K 3.8 mmol/L (3.5-5.1); PROTEIN TOTAL,TP 5.8 g/dL (6.4-8.2)
[2023-08-28 09:11] VITALS: BP 127/73; PULSE 75
[2023-08-28] MEDS: Nicotine 21 MG/24 Hr Patch TRDERM SCH (09:12)
== END 2023-08-28 11:30 | disposition home or self-care (01) ==
LOC: MW.ED 13:23 → MW.MS 16:25
PROVIDERS: ADMIT Internal Medicine; ATTEND Internal Medicine
DX: K52.9 Noninfective gastroenteritis and colitis, unspecified (principal); N17.9 Acute kidney failure, unspecified; F32.A Depression, unspecified; F41.9 Anxiety disorder, unspecified; E66.9 Obesity, unspecified; Z68.37 Body mass index [BMI] 37.0-37.9, adult; Z79.899 Other long term (current) drug therapy
CPT/HCPCS: 36415; 74177; 80053; 81003; 83605; 83690; 83735; 84703; 85025; 96361; 96374; 96375; 99285; A9270; C9113; J1170; J2270; J2405; J3490; J7030; Q9967; 96376; G0378

== ENCOUNTER 2024-01-17 14:15 | Emergency (ER) | payer BC, OTHER ==
[2024-01-17 15:04] LABS: BASOPHILS ABSOLUTE AUTO 0.04 K/uL (0.00-0.20); BASOPHILS PERCENT AUTO 0.3 % (0.0-1.0); EOSINOPHILS ABSOLUTE AUTO 0.09 K/uL (0.00-0.45); EOSINOPHILS PERCENT AUTO 0.7 % (0.0-6.0); HEMATOCRIT 34.7 % (37.0-47.0); HEMOGLOBIN 11.8 g/dL (12.0-16.0); IMMATURE GRAN ABSOLUTE AUTO 0.01 K/uL (0.00-0.05); IMMATURE GRAN PERCENT AUTO 0.1 % (0.0-0.4); LYMPHOCYTES ABSOLUTE AUTO 1.99 K/uL (1.00-4.80); LYMPHOCYTES PERCENT AUTO 16.6 % (24.0-44.0); MEAN CORPUSCULAR HEMOGLOBIN 27.4 pg (28.0-32.0); MEAN CORPUSCULAR VOLUME 80.7 fL (83.0-99.0); MONOCYTES ABSOLUTE AUTO 0.62 K/uL (0.00-0.80); MONOCYTES PERCENT AUTO 5.2 % (0.0-8.0); NEUTROPHILS ABSOLUTE AUTO 9.26 K/uL (1.80-7.70); NEUTROPHILS PERCENT AUTO 77.1 % (41.0-71.0); WHITE BLOOD CELL COUNT,WBC 12.01 K/uL (3.9-11.3)
[2024-01-17 15:09] LABS: PLATELET COUNT,PLT 396 K/uL (150-400)
[2024-01-17 15:13] LABS: INR 1.02 (0.86-1.11); PTT,PARTIAL THROMBOPLSTIN TIME 28.8 SEC (23.9-30.7)
[2024-01-17 15:35] LABS: ALANINE AMINOTRANSFERASE,ALT 30 IU/L (14-63); ALBUMIN 3.2 g/dL (3.4-5.0); ALKALINE PHOSPHATASE 148 U/L (46-116); ASPARTATE AMNIOTRANSFERASE,AST 18 IU/L (15-37); BILIRUBIN TOTAL 0.3 mg/dL (0.2-1.0); BLOOD UREA NITROGEN,BUN 12 mg/dL (7.0-18.0); CALCIUM 8.9 mg/dL (8.5-10.1); CARBON DIOXIDE,CO2 26.8 mmol/L (21.0-32.0); CHLORIDE,CL 101 mmol/L (98-107); CREATININE 1.1 mg/dL (0.6-1.0); EST CRCL DRUG DOSING (CG) 52.86 mL/min; ESTIMATED GFR 63 mL/min (>60); ETHANOL BLOOD MEDICAL < 3.0 mg/dL; GLUCOSE RANDOM 175 mg/dL (74-106); POTASSIUM,K 3.6 mmol/L (3.5-5.1); PROTEIN TOTAL,TP 6.4 g/dL (6.4-8.2); SODIUM,NA 140 mmol/L (136-145); TSH ULTRASENSITIVE 0.91 uIU/mL (0.36-3.74)
[2024-01-17] MEDS: Sodium Chloride 0.9% 1,000 ML IV ONE (15:36)
[2024-01-17] MEDS: Lidocaine 4% 1 each Patch TOP STA (15:36)
[2024-01-17] MEDS: Iopamidol 755 MG/ML 500 ML Multipack Bottle IVPUSH STA (15:40)
[2024-01-17 16:16] LABS: APPEARANCE,URINE CLEAR; BILIRUBIN,URINE NEGATIVE (NEGATIVE); COLOR,URINE YELLOW; GLUCOSE,URINE NEGATIVE (NEGATIVE); KETONES,URINE NEGATIVE (NEGATIVE); LEUKOCYTE ESTERASE,URINE NEGATIVE (NEGATIVE); NITRITE,URINE NEGATIVE (NEGATIVE); OCCULT BLOOD,URINE NEGATIVE (NEGATIVE); PROTEIN,URINE NEGATIVE (NEGATIVE); UROBILINOGEN,URINE 0.2 EU/dL (<2.0)
[2024-01-17 16:26] LABS: AMPHETAMINES SCREEN, URINE NEGATIVE (CUTOFF=500); BARBITURATE SCREEN,URINE NEGATIVE (CUTOFF=200); BENZODIAZEPINES SCREEN,URINE NEGATIVE (CUTOFF=150); BUPRENORPHINE SCREEN,URINE NEGATIVE (CUTOFF=10); METHADONE SCREEN, URINE NEGATIVE (CUTOFF=200); METHAMPHETAMINES SCREEN, URINE NEGATIVE (CUTOFF=500); OXYCODONE SCREEN,URINE NEGATIVE (CUT0FF=100); PCP SCREEN,URINE NEGATIVE (CUTOFF=25); THC SCREEN,URINE 20 NG/ML NEGATIVE (CUTOFF=50)
[2024-01-17] MEDS: atorvaSTATin 20 MG Tab PO ONE (16:47)
[2024-01-17] MEDS: Aspirin 325 MG Tab PO ONE (16:47)
[2024-01-17 16:49] VITALS: BP 120/47; PULSE 88
== END 2024-01-17 17:21 ==
LOC: MW.ED 14:15
DX: G45.9 Transient cerebral ischemic attack, unspecified (principal); Z79.899 Other long term (current) drug therapy; Z90.710 Acquired absence of both cervix and uterus; Z90.49 Acquired absence of other specified parts of digestive tract
CPT/HCPCS: 36415; 70450; 70496; 70498; 71045; 80053; 80305; 80307; 81003; 82947; 84443; 85025; 85610; 85730; 93005; 96360; 99285; A9270; J7030; Q9967; 93010

== ENCOUNTER 2024-03-27 04:55 | Emergency (ER) | payer BC ==
[2024-03-27] MEDS: Sodium Chloride 0.9% 1,000 ML IV SCH (05:17)
[2024-03-27] MEDS: Ondansetron 4 MG/2 ML SDV IVPUSH STA (05:18)
[2024-03-27 05:25] LABS: BASOPHILS ABSOLUTE AUTO 0.04 K/uL (0.00-0.20); BASOPHILS PERCENT AUTO 0.3 % (0.0-1.0); EOSINOPHILS ABSOLUTE AUTO 0.23 K/uL (0.00-0.45); EOSINOPHILS PERCENT AUTO 1.9 % (0.0-6.0); HEMATOCRIT 41.3 % (37.0-47.0); HEMOGLOBIN 13.7 g/dL (12.0-16.0); IMMATURE GRAN ABSOLUTE AUTO 0.03 K/uL (0.00-0.05); IMMATURE GRAN PERCENT AUTO 0.2 % (0.0-0.4); LYMPHOCYTES ABSOLUTE AUTO 2.47 K/uL (1.00-4.80); MEAN CORPUSCULAR HEMOGLOBIN 25.8 pg (28.0-32.0); MEAN CORPUSCULAR HGB CONC 33.2 g/dL (32.0-36.0); MEAN CORPUSCULAR VOLUME 77.9 fL (83.0-99.0); MEAN PLATELET VOLUME 9.1 fL (9.4-12.3); MONOCYTES ABSOLUTE AUTO 0.74 K/uL (0.00-0.80); NEUTROPHILS ABSOLUTE AUTO 8.85 K/uL (1.80-7.70); NEUTROPHILS PERCENT AUTO 71.6 % (41.0-71.0); PLATELET COUNT,PLT 339 K/uL (150-400); WHITE BLOOD CELL COUNT,WBC 12.36 K/uL (3.9-11.3)
[2024-03-27 05:46] LABS: ALBUMIN 3.7 g/dL (3.4-5.0); BILIRUBIN TOTAL 0.4 mg/dL (0.2-1.0); CALCIUM 8.6 mg/dL (8.5-10.1); CARBON DIOXIDE,CO2 24.1 mmol/L (21.0-32.0); CREATININE 0.9 mg/dL (0.6-1.0); EST CRCL DRUG DOSING (CG) 61.12 mL/min; POTASSIUM,K 3.7 mmol/L (3.5-5.1); PROTEIN TOTAL,TP 7.3 g/dL (6.4-8.2)
[2024-03-27] MEDS: fentaNYL 50 MCG/ML SDV IVPUSH ONE (05:46)
[2024-03-27] MEDS: Iopamidol 755 MG/ML 500 ML Multipack Bottle IVPUSH ONE (06:29)
[2024-03-27 07:07] LABS: APPEARANCE,URINE CLEAR; BILIRUBIN,URINE NEGATIVE (NEGATIVE); COLOR,URINE YELLOW; GLUCOSE,URINE NEGATIVE (NEGATIVE); KETONES,URINE NEGATIVE (NEGATIVE); LEUKOCYTE ESTERASE,URINE NEGATIVE (NEGATIVE); NITRITE,URINE NEGATIVE (NEGATIVE); OCCULT BLOOD,URINE NEGATIVE (NEGATIVE); PROTEIN,URINE NEGATIVE (NEGATIVE); UROBILINOGEN,URINE 0.2 EU/dL (<2.0)
[2024-03-27 15:01] VITALS: BP 133/90; PULSE 68
== END 2024-03-27 07:50 | disposition home or self-care (01) ==
LOC: MW.ED 04:55
DX: R10.10 Upper abdominal pain, unspecified (principal); R10.84 Generalized abdominal pain; R11.2 Nausea with vomiting, unspecified; E66.9 Obesity, unspecified; Z68.38 Body mass index [BMI] 38.0-38.9, adult; Z90.49 Acquired absence of other specified parts of digestive tract; Z75.8 Other problems related to medical facilities and other health care; Z90.710 Acquired absence of both cervix and uterus
CPT/HCPCS: 36415; 74177; 80053; 81003; 85025; 96361; 96374; 96375; 99284; J2405; J3010; J7030; Q9967

== ENCOUNTER 2024-04-10 20:57 | Emergency (ER) | payer BC ==
[2024-04-10] MEDS: Sodium Chloride 0.9% 10 ML Syringe FLUSH PRN (22:00)
[2024-04-10] MEDS: Sodium Chloride 0.9% 1,000 ML IV ONE (22:00)
[2024-04-10] MEDS: Ondansetron 4 MG/2 ML SDV IVPUSH ONE (22:00)
[2024-04-10] MEDS: Sodium Chloride 0.9% 2.5 ML Syringe FLUSH PRN (22:01)
[2024-04-10 22:08] LABS: BASOPHILS ABSOLUTE AUTO 0.05 K/uL (0.00-0.20); BASOPHILS PERCENT AUTO 0.4 % (0.0-1.0); EOSINOPHILS ABSOLUTE AUTO 0.12 K/uL (0.00-0.45); EOSINOPHILS PERCENT AUTO 0.9 % (0.0-6.0); HEMATOCRIT 37.8 % (37.0-47.0); HEMOGLOBIN 12.7 g/dL (12.0-16.0); IMMATURE GRAN ABSOLUTE AUTO 0.09 K/uL (0.00-0.05); IMMATURE GRAN PERCENT AUTO 0.6 % (0.0-0.4); LYMPHOCYTES ABSOLUTE AUTO 1.44 K/uL (1.00-4.80); LYMPHOCYTES PERCENT AUTO 10.2 % (24.0-44.0); MEAN CORPUSCULAR HGB CONC 33.6 g/dL (32.0-36.0); MEAN CORPUSCULAR VOLUME 77.3 fL (83.0-99.0); MEAN PLATELET VOLUME 8.9 fL (9.4-12.3); MONOCYTES ABSOLUTE AUTO 1.36 K/uL (0.00-0.80); MONOCYTES PERCENT AUTO 9.7 % (0.0-8.0); NEUTROPHILS ABSOLUTE AUTO 11.03 K/uL (1.80-7.70); NEUTROPHILS PERCENT AUTO 78.2 % (41.0-71.0); PLATELET COUNT,PLT 455 K/uL (150-400); RED BLOOD CELL COUNT 4.89 M/uL (4.10-5.30); WHITE BLOOD CELL COUNT,WBC 14.09 K/uL (3.9-11.3)
[2024-04-10 22:12] LABS: COLOR,URINE YELLOW; GLUCOSE,URINE NEGATIVE (NEGATIVE); KETONES,URINE 40 mg/dL (NEGATIVE); LEUKOCYTE ESTERASE,URINE NEGATIVE (NEGATIVE); NITRITE,URINE NEGATIVE (NEGATIVE); OCCULT BLOOD,URINE TRACE-INTACT (NEGATIVE); PROTEIN,URINE 30 mg/dL (NEGATIVE); UROBILINOGEN,URINE 0.2 EU/dL (<2.0)
[2024-04-10 22:15] LABS: BILIRUBIN,URINE SMALL (NEGATIVE)
[2024-04-10 22:16] LABS: APPEARANCE,URINE HAZY
[2024-04-10 22:20] LABS: BACTERIA,URINE MODERATE (NEGATIVE); EPITHELIAL CELLS,URINE MODERATE (NONE-FEW); WBC,URINE 0-1 (0-5/HPF)
[2024-04-10] MEDS ORDERED: Naloxone 0.4 MG/ML SDV IVPUSH PRN (22:20)
[2024-04-10] MEDS: HYDROmorphone 0.5 MG/0.5 ML Syringe IVPUSH STA ×2 (22:24→23:41)
[2024-04-10] MEDS: Morphine 4 MG/ML Syringe IVPUSH ONE (22:27)
[2024-04-10 22:33] LABS: A/G RATIO 0.6 (0.9-1.6); ALBUMIN 3.1 g/dL (3.4-5.0); BILIRUBIN TOTAL 0.6 mg/dL (0.2-1.0); CALCIUM 10.4 mg/dL (8.5-10.1); CARBON DIOXIDE,CO2 32.5 mmol/L (21.0-32.0); EST CRCL DRUG DOSING (CG) 55.01 mL/min; MAGNESIUM 1.8 mg/dL (1.8-2.4); POTASSIUM,K 3.7 mmol/L (3.5-5.1); PROTEIN TOTAL,TP 8.5 g/dL (6.4-8.2)
[2024-04-10] MEDS: Iopamidol 755 MG/ML 500 ML Multipack Bottle IVPUSH STA (22:40)
[2024-04-10 22:47] LABS: LACTIC ACID 1.6 mmol/L (0.4-2.0)
[2024-04-10] MEDS: Ondansetron 4 MG/2 ML SDV IVPUSH STA (23:41)
[2024-04-11] MEDS: HYDROmorphone 0.5 MG/0.5 ML Syringe IVPUSH STA ×2 (01:22→04:15)
[2024-04-11] MEDS: HYDROmorphone 1 MG/ML Syringe IVPUSH STA (02:37)
[2024-04-11] MEDS: Piperacillin/Tazobactam 4.5 GM in Sodium Chloride 0.9% 100 ML IV ONE (02:38)
[2024-04-11] MEDS: Benzocaine 20% Topical Spray UD MUCMEM ONE (02:38)
[2024-04-11] MEDS: Lidocaine 2% Viscous Solution 15 ML UD PO ONE (02:42)
[2024-04-11] MEDS: Lidocaine 2% 11 ML Jelly Filled Syringe MUCMEM STA (03:12)
[2024-04-11] MEDS: Sodium Chloride 0.9% 1,000 ML IV STA (03:14)
[2024-04-11] MEDS: Metoclopramide 10 MG/2 ML SDV IVPUSH STA (04:15)
[2024-04-11] MEDS: diphenhydrAMINE 50 MG/ML SDV IVPUSH STA (04:15)
[2024-04-11] MEDS: Ondansetron 4 MG/2 ML SDV IVPUSH STA (04:56)
[2024-04-11] MEDS: droPERidol 5 MG/2 ML SDV IVPUSH ONE (07:42)
[2024-04-11] MEDS: HYDROmorphone 0.5 MG/0.5 ML Syringe IVPUSH PRN (07:43)
[2024-04-11] MEDS: droPERidol 5 MG/2 ML SDV IM STA (08:00)
[2024-04-11] MEDS: HYDROmorphone 0.5 MG/0.5 ML Syringe IM ONE (08:00)
[2024-04-11 08:18] VITALS: BP 126/74; PULSE 115
== END 2024-04-11 09:49 ==
LOC: MW.ED 20:57
DX: K56.600 Partial intestinal obstruction, unspecified as to cause (principal); L08.9 Local infection of the skin and subcutaneous tissue, unspecified; E66.9 Obesity, unspecified; Z79.899 Other long term (current) drug therapy; Z68.36 Body mass index [BMI] 36.0-36.9, adult
CPT/HCPCS: 36415; 43752; 74018; 74177; 80053; 81001; 83605; 83690; 83735; 84703; 85025; 87040; 96361; 96365; 96372; 96375; 96376; 99285; A9270; J1170; J1200; J1790; J2405; J2543; J2765; J3490; J7030; Q9967

== ENCOUNTER 2024-05-13 11:58 | Emergency (ER) | payer BC ==
[2024-05-13 12:10] VITALS: BP 168/106; PULSE 116
[2024-05-13] MEDS: Sodium Chloride 0.9% 1,000 ML IV ONE (12:20)
[2024-05-13 12:34] LABS: APPEARANCE,URINE SLT CLOUDY; BILIRUBIN,URINE NEGATIVE (NEGATIVE); COLOR,URINE YELLOW; GLUCOSE,URINE NEGATIVE (NEGATIVE); KETONES,URINE 15 mg/dL (NEGATIVE); LEUKOCYTE ESTERASE,URINE NEGATIVE (NEGATIVE); NITRITE,URINE NEGATIVE (NEGATIVE); OCCULT BLOOD,URINE NEGATIVE (NEGATIVE); PROTEIN,URINE NEGATIVE (NEGATIVE); UROBILINOGEN,URINE 0.2 EU/dL (<2.0)
[2024-05-13 12:58] LABS: BASOPHILS ABSOLUTE AUTO 0.03 K/uL (0.00-0.20); BASOPHILS PERCENT AUTO 0.3 % (0.0-1.0); EOSINOPHILS PERCENT AUTO 1.1 % (0.0-6.0); HEMATOCRIT 39.6 % (37.0-47.0); HEMOGLOBIN 12.9 g/dL (12.0-16.0); IMMATURE GRAN ABSOLUTE AUTO 0.04 K/uL (0.00-0.05); IMMATURE GRAN PERCENT AUTO 0.4 % (0.0-0.4); LYMPHOCYTES ABSOLUTE AUTO 1.88 K/uL (1.00-4.80); LYMPHOCYTES PERCENT AUTO 19.8 % (24.0-44.0); MEAN CORPUSCULAR HEMOGLOBIN 25.2 pg (28.0-32.0); MEAN CORPUSCULAR HGB CONC 32.6 g/dL (32.0-36.0); MEAN CORPUSCULAR VOLUME 77.3 fL (83.0-99.0); MEAN PLATELET VOLUME 9.2 fL (9.4-12.3); MONOCYTES ABSOLUTE AUTO 0.42 K/uL (0.00-0.80); MONOCYTES PERCENT AUTO 4.4 % (0.0-8.0); NEUTROPHILS ABSOLUTE AUTO 7.04 K/uL (1.80-7.70); PLATELET COUNT,PLT 342 K/uL (150-400); RED BLOOD CELL COUNT 5.12 M/uL (4.10-5.30); WHITE BLOOD CELL COUNT,WBC 9.51 K/uL (3.9-11.3)
[2024-05-13 13:14] LABS: ALBUMIN 4.2 g/dL (3.4-5.0); BILIRUBIN TOTAL 0.5 mg/dL (0.2-1.0); CALCIUM 9.7 mg/dL (8.5-10.1); CARBON DIOXIDE,CO2 23.6 mmol/L (21.0-32.0); CREATININE 1.1 mg/dL (0.6-1.0); EST CRCL DRUG DOSING (CG) 52.3 mL/min; POTASSIUM,K 3.7 mmol/L (3.5-5.1); PROTEIN TOTAL,TP 8.5 g/dL (6.4-8.2)
[2024-05-13 13:16] LABS: CANDIDA DNA PROBE NEGATIVE (NEGATIVE); GARDNERELLA DNA PROBE POSITIVE (NEGATIVE); TRICHOMONAS DNA PROBE NEGATIVE (NEGATIVE)
[2024-05-13] MEDS: metroNIDAZOLE 250 MG Tab PO ONE (13:28)
== END 2024-05-13 13:31 | disposition home or self-care (01) ==
LOC: MW.ED 11:58
DX: N76.0 Acute vaginitis (principal); E66.9 Obesity, unspecified; Z79.899 Other long term (current) drug therapy; Z90.49 Acquired absence of other specified parts of digestive tract; Z90.710 Acquired absence of both cervix and uterus; Z75.8 Other problems related to medical facilities and other health care; Z68.28 Body mass index [BMI] 28.0-28.9, adult
CPT/HCPCS: 36415; 80053; 81003; 85025; 87480; 87510; 87660; 96360; 99284; A9270; J7030; 99283

== ENCOUNTER 2024-07-26 07:50 | Emergency (ER) | payer BC ==
[2024-07-26 08:18] LABS: BASOPHILS ABSOLUTE AUTO 0.04 K/uL (0.00-0.20); BASOPHILS PERCENT AUTO 0.5 % (0.0-1.0); EOSINOPHILS ABSOLUTE AUTO 0.19 K/uL (0.00-0.45); EOSINOPHILS PERCENT AUTO 2.5 % (0.0-6.0); HEMATOCRIT 40.2 % (37.0-47.0); HEMOGLOBIN 13.3 g/dL (12.0-16.0); IMMATURE GRAN ABSOLUTE AUTO 0.01 K/uL (0.00-0.05); IMMATURE GRAN PERCENT AUTO 0.1 % (0.0-0.4); LYMPHOCYTES ABSOLUTE AUTO 1.76 K/uL (1.00-4.80); LYMPHOCYTES PERCENT AUTO 22.8 % (24.0-44.0); MEAN CORPUSCULAR HEMOGLOBIN 26.4 pg (28.0-32.0); MEAN CORPUSCULAR HGB CONC 33.1 g/dL (32.0-36.0); MEAN CORPUSCULAR VOLUME 79.8 fL (83.0-99.0); MEAN PLATELET VOLUME 9.2 fL (9.4-12.3); MONOCYTES ABSOLUTE AUTO 0.61 K/uL (0.00-0.80); MONOCYTES PERCENT AUTO 7.9 % (0.0-8.0); NEUTROPHILS ABSOLUTE AUTO 5.12 K/uL (1.80-7.70); NEUTROPHILS PERCENT AUTO 66.2 % (41.0-71.0); PLATELET COUNT,PLT 330 K/uL (150-400); RED BLOOD CELL COUNT 5.04 M/uL (4.10-5.30); WHITE BLOOD CELL COUNT,WBC 7.73 K/uL (3.9-11.3)
[2024-07-26] MEDS: Ondansetron 4 MG/2 ML SDV IVPUSH ONE (08:24)
[2024-07-26] MEDS: HYDROmorphone 0.5 MG/0.5 ML Syringe IVPUSH ONE (08:24)
[2024-07-26] MEDS: Sodium Chloride 0.9% 10 ML Syringe FLUSH PRN (08:25)
[2024-07-26] MEDS: Sodium Chloride 0.9% 2.5 ML Syringe FLUSH PRN (08:25)
[2024-07-26] MEDS: Sodium Chloride 0.9% 1,000 ML IV STA (08:33)
[2024-07-26 08:38] LABS: APPEARANCE,URINE CLEAR; BILIRUBIN,URINE NEGATIVE (NEGATIVE); COLOR,URINE YELLOW; GLUCOSE,URINE NEGATIVE (NEGATIVE); KETONES,URINE TRACE mg/dL (NEGATIVE); LEUKOCYTE ESTERASE,URINE NEGATIVE (NEGATIVE); NITRITE,URINE NEGATIVE (NEGATIVE); OCCULT BLOOD,URINE NEGATIVE (NEGATIVE); PROTEIN,URINE NEGATIVE (NEGATIVE); UROBILINOGEN,URINE 0.2 EU/dL (<2.0)
[2024-07-26 08:55] LABS: A/G RATIO 1.1 (0.9-1.6); BILIRUBIN TOTAL 0.4 mg/dL (0.2-1.0); CALCIUM 9.3 mg/dL (8.5-10.1); CARBON DIOXIDE,CO2 25.6 mmol/L (21.0-32.0); CREATININE 0.9 mg/dL (0.6-1.0); EST CRCL DRUG DOSING (CG) 63.92 mL/min; POTASSIUM,K 4.3 mmol/L (3.5-5.1); PROTEIN TOTAL,TP 7.8 g/dL (6.4-8.2)
[2024-07-26] MEDS: Iopamidol 755 MG/ML 500 ML Multipack Bottle IVPUSH STA (09:15)
[2024-07-26 16:51] VITALS: BP 156/92; PULSE 71
== END 2024-07-26 10:28 | disposition home or self-care (01) ==
LOC: MW.ED 07:50
DX: K66.0 Peritoneal adhesions (postprocedural) (postinfection) (principal); R10.10 Upper abdominal pain, unspecified; R19.7 Diarrhea, unspecified; E66.9 Obesity, unspecified; F17.210 Nicotine dependence, cigarettes, uncomplicated; Z79.899 Other long term (current) drug therapy; Z90.49 Acquired absence of other specified parts of digestive tract; Z90.710 Acquired absence of both cervix and uterus; Z68.34 Body mass index [BMI] 34.0-34.9, adult
CPT/HCPCS: 36415; 74177; 80053; 81003; 81025; 85025; 96361; 96374; 96375; 99284; J1171; J2405; J3490; J7030; Q9967

== ENCOUNTER 2024-08-26 10:27 | Emergency (ER) | payer BC ==
[2024-08-26] MEDS ORDERED: Sodium Chloride 0.9% 2.5 ML Syringe FLUSH PRN (10:40)
[2024-08-26] MEDS ORDERED: Sodium Chloride 0.9% 10 ML Syringe FLUSH PRN (10:40)
[2024-08-26 11:06] LABS: BASOPHILS ABSOLUTE AUTO 0.04 K/uL (0.00-0.20); BASOPHILS PERCENT AUTO 0.5 % (0.0-1.0); EOSINOPHILS ABSOLUTE AUTO 0.16 K/uL (0.00-0.45); EOSINOPHILS PERCENT AUTO 2.2 % (0.0-6.0); HEMATOCRIT 40.3 % (37.0-47.0); HEMOGLOBIN 13.3 g/dL (12.0-16.0); IMMATURE GRAN ABSOLUTE AUTO 0.03 K/uL (0.00-0.05); IMMATURE GRAN PERCENT AUTO 0.4 % (0.0-0.4); LYMPHOCYTES ABSOLUTE AUTO 2.78 K/uL (1.00-4.80); LYMPHOCYTES PERCENT AUTO 37.9 % (24.0-44.0); MEAN CORPUSCULAR HEMOGLOBIN 26.5 pg (28.0-32.0); MEAN CORPUSCULAR VOLUME 80.4 fL (83.0-99.0); MEAN PLATELET VOLUME 9.1 fL (9.4-12.3); MONOCYTES ABSOLUTE AUTO 0.49 K/uL (0.00-0.80); MONOCYTES PERCENT AUTO 6.7 % (0.0-8.0); NEUTROPHILS ABSOLUTE AUTO 3.83 K/uL (1.80-7.70); NEUTROPHILS PERCENT AUTO 52.3 % (41.0-71.0); PLATELET COUNT,PLT 320 K/uL (150-400); RED BLOOD CELL COUNT 5.01 M/uL (4.10-5.30); WHITE BLOOD CELL COUNT,WBC 7.33 K/uL (3.9-11.3)
[2024-08-26] MEDS: HYDROmorphone 0.5 MG/0.5 ML Syringe IVPUSH ONE (11:27)
[2024-08-26] MEDS: Ondansetron 4 MG/2 ML SDV IVPUSH ONE (11:27)
[2024-08-26 11:32] LABS: ALBUMIN 3.9 g/dL (3.4-5.0); BILIRUBIN TOTAL 0.7 mg/dL (0.2-1.0); CALCIUM 9.2 mg/dL (8.5-10.1); CARBON DIOXIDE,CO2 29.1 mmol/L (21.0-32.0); EST CRCL DRUG DOSING (CG) 57.53 mL/min; POTASSIUM,K 3.4 mmol/L (3.5-5.1); PROTEIN TOTAL,TP 7.8 g/dL (6.4-8.2)
[2024-08-26 11:36] VITALS: PULSE 79
[2024-08-26] MEDS: Iopamidol 755 Mg/ML 100 ML Bottle IVPUSH ONE (11:36)
[2024-08-26 11:49] LABS: APPEARANCE,URINE CLEAR; BILIRUBIN,URINE SMALL (NEGATIVE); COLOR,URINE YELLOW; GLUCOSE,URINE NEGATIVE (NEGATIVE); KETONES,URINE TRACE mg/dL (NEGATIVE); LEUKOCYTE ESTERASE,URINE NEGATIVE (NEGATIVE); NITRITE,URINE NEGATIVE (NEGATIVE); OCCULT BLOOD,URINE NEGATIVE (NEGATIVE); PH,URINE 5.5 (5.0-8.0); PROTEIN,URINE NEGATIVE (NEGATIVE); UROBILINOGEN,URINE 0.2 EU/dL (<2.0)
[2024-08-26 13:01] VITALS: BP 164/100
== END 2024-08-26 12:59 | disposition home or self-care (01) ==
LOC: MW.ED 10:27
DX: R10.11 Right upper quadrant pain (principal); R10.12 Left upper quadrant pain; R11.10 Vomiting, unspecified; E66.9 Obesity, unspecified; Z79.899 Other long term (current) drug therapy; Z68.33 Body mass index [BMI] 33.0-33.9, adult; Z75.8 Other problems related to medical facilities and other health care
CPT/HCPCS: 36415; 74177; 80053; 81003; 81025; 83690; 85025; 96374; 96375; 99284; J1171; J2405; Q9967

== ENCOUNTER 2024-09-29 16:59 | Emergency (ER) | payer BC ==
[2024-09-29 19:40] VITALS: BP 167/92; PULSE 75
[2024-09-29 20:23] LABS: BASOPHILS ABSOLUTE AUTO 0.04 K/uL (0.00-0.20); BASOPHILS PERCENT AUTO 0.4 % (0.0-1.0); EOSINOPHILS ABSOLUTE AUTO 0.11 K/uL (0.00-0.45); EOSINOPHILS PERCENT AUTO 1.2 % (0.0-6.0); HEMATOCRIT 38.4 % (37.0-47.0); HEMOGLOBIN 12.8 g/dL (12.0-16.0); IMMATURE GRAN ABSOLUTE AUTO 0.02 K/uL (0.00-0.05); IMMATURE GRAN PERCENT AUTO 0.2 % (0.0-0.4); LYMPHOCYTES ABSOLUTE AUTO 3.06 K/uL (1.00-4.80); LYMPHOCYTES PERCENT AUTO 33.8 % (24.0-44.0); MEAN CORPUSCULAR HEMOGLOBIN 26.7 pg (28.0-32.0); MEAN CORPUSCULAR HGB CONC 33.3 g/dL (32.0-36.0); MEAN PLATELET VOLUME 8.9 fL (9.4-12.3); MONOCYTES ABSOLUTE AUTO 0.61 K/uL (0.00-0.80); MONOCYTES PERCENT AUTO 6.7 % (0.0-8.0); NEUTROPHILS PERCENT AUTO 57.7 % (41.0-71.0); PLATELET COUNT,PLT 314 K/uL (150-400); WHITE BLOOD CELL COUNT,WBC 9.04 K/uL (3.9-11.3)
[2024-09-29 20:34] LABS: APPEARANCE,URINE CLEAR; BILIRUBIN,URINE NEGATIVE (NEGATIVE); COLOR,URINE YELLOW; GLUCOSE,URINE NEGATIVE (NEGATIVE); KETONES,URINE NEGATIVE (NEGATIVE); LEUKOCYTE ESTERASE,URINE NEGATIVE (NEGATIVE); NITRITE,URINE NEGATIVE (NEGATIVE); OCCULT BLOOD,URINE NEGATIVE (NEGATIVE); PROTEIN,URINE NEGATIVE (NEGATIVE); UROBILINOGEN,URINE 0.2 EU/dL (<2.0)
[2024-09-29 20:46] LABS: ALBUMIN 3.9 g/dL (3.4-5.0); BILIRUBIN TOTAL 0.6 mg/dL (0.2-1.0); CALCIUM 9.4 mg/dL (8.5-10.1); CARBON DIOXIDE,CO2 26.4 mmol/L (21.0-32.0); CREATININE 0.8 mg/dL (0.6-1.0); EST CRCL DRUG DOSING (CG) 71.91 mL/min; POTASSIUM,K 3.7 mmol/L (3.5-5.1); PROTEIN TOTAL,TP 7.9 g/dL (6.4-8.2)
== END 2024-09-29 23:43 | disposition home or self-care (01) ==
LOC: MW.ED 16:59
DX: K66.0 Peritoneal adhesions (postprocedural) (postinfection) (principal); R11.2 Nausea with vomiting, unspecified; E66.9 Obesity, unspecified; Z68.34 Body mass index [BMI] 34.0-34.9, adult; F17.210 Nicotine dependence, cigarettes, uncomplicated; Z79.899 Other long term (current) drug therapy; Z75.8 Other problems related to medical facilities and other health care
CPT/HCPCS: 36415; 74176; 74176-26; 80053; 81003; 83690; 85025; 99283; 99284